=== PATIENT | male | born 1985 | race Two or more races ===

== ENCOUNTER 2016-10-17 10:56 | Emergency (ER) | payer SELFPAY ==
--- NOTE | 2016-10-17 11:15 | ER Document Report ---
ED ENT - General Stated Complaint: HEAD AND EAR SWELLING Mode of Arrival: Ambulatory Information source: Patient TRAVEL OUTSIDE OF THE [place] IN LAST 30 DAYS: No - HPI Patient complains to provider of: Ear problem - R. EAR AND SIDE OF FACE SWOLLEN Onset: This morning - NOTICED UPON AWAKENING. Onset/Duration: Gradual - PROBABLY, EVOLVED OVERNIGHT. Quality of pain: Other - FULLNESS, SLIGHT ITCHING Severity: Mild Context: Allergies - NUMEROUS ENVIRONMENTAL Location of pain: Ears - RIGHT, Face - RIGHT Associated symptoms: Ear pain, Face swelling, Headache. denies: Dental caries, Ear drainage, Ear trauma, Fever, Jaw swelling Similar symptoms previously: No Recently seen / treated by doctor: No - Related Data Allergies/Adverse Reactions: Shellfish * [Shellfish] Allergy (Verified 06/05/13 16:14) ants Allergy (Uncoded 06/05/13 16:14) ragweed Allergy (Uncoded 06/05/13 16:14) Past Medical History - General Information source: Patient - Social History Smoking Status: Current Every Day Smoker Cigarette use (# per day): Yes Chew tobacco use (# tins/day): No Smoking Education Provided: No Frequency of alcohol use: Occasional Drug Abuse: Marijuana Lives with: Family Family History: Reviewed & Not Pertinent Patient has suicidal ideation: No Patient has homicidal ideation: No - Past Medical History Cardiac Medical History: Reports: None Pulmonary Medical History: Reports: Hx Asthma EENT Medical History: Reports: None Neurological Medical History: Reports: None Endocrine Medical History: Reports: None Renal/ Medical History: Reports: None Malignancy Medical History: Reports None GI Medical History: Reports: None Musculoskeltal Medical History: Reports None Psychiatric Medical History: Reports: None Traumatic Medical History: Reports: None Past Surgical History: Reports: Hx Orthopedic Surgery - fb removed from foot, Hx Testicular Surgery - left testical removed - Immunizations Immunizations up to date: Yes Hx Diphtheria, Pertussis, Tetanus Vaccination: No Review of Systems - Review of Systems Constitutional: No symptoms reported EENT: See HPI Cardiovascular: No symptoms reported Respiratory: No symptoms reported Gastrointestinal: No symptoms reported Musculoskeletal: No symptoms reported Skin: See HPI Neurological/Psychological: No symptoms reported Physical Exam - Vital signs Vitals: Temp Pulse BP Pulse Ox 98.2 F 74 186/125 H 94 10/17/16 11:10 10/17/16 11:10 10/17/16 11:10 10/17/16 11:10 Interpretation: Hypertensive - General General appearance: Appears well, Alert In distress: None - HEENT Head: Other - MILD EDEMA & SLIGHT TENDERNESS OF R. TEMPORAL SCALP, R. FRONTAL AREA, R. PRE-AURICULAR AREA. Eyes: Normal Conjunctiva: Normal Cornea: Normal Fundascopic: Normal Ears: Normal External canal: Normal Tympanic membrane: Normal Nasal: Normal Mouth/Lips: Normal Mucous membranes: Normal Pharynx: Normal Neck: Normal. No: Neck mass - Respiratory Respiratory status: No respiratory distress - Cardiovascular Rhythm: Regular Heart sounds: Normal auscultation Murmur: No - Abdominal Inspection: Obese - Back Back: Normal - Extremities General upper extremity: Normal inspection General lower extremity: Normal inspection - Neurological Neuro grossly intact: Yes Cognition: Normal Orientation: AAOx4 - Psychological Associated symptoms: Normal affect, Normal mood - Skin Skin Temperature: Warm Skin Moisture: Dry Skin Color: Normal Skin Turgor: Elastic Skin irregularity: other - NO OPEN WOUNDS OR OTHER DISCRETE LESIONS ABOUT HEAD & NECK. Course - Vital Signs Vital signs: Temp Pulse Resp BP Pulse Ox 97.5 F 71 149/105 H 97 10/17/16 13:37 10/17/16 13:37 10/17/16 13:37 10/17/16 13:37 Discharge - Discharge Clinical Impression: Facial edema Condition: Stable Disposition: HOME, SELF-CARE Additional Instructions: KEEP HEAD ELEVATED MUCH POSSIBLE. TAKE BENADRYL, 25-50 mg EVERY 4-6 HOURS. FOLLOW UP IF NOT IMPROVED TOMORROW, OR SOONER IF WORSE ANY TIME.
[2016-10-17 13:41] VITALS: BP 149/105
== END 2016-10-17 13:37 | disposition home or self-care (01) ==
LOC: ER 10:56
DX: R60.0 Localized edema (principal); H92.09 Otalgia, unspecified ear; R51 Headache; J45.909 Unspecified asthma, uncomplicated; F17.210 Nicotine dependence, cigarettes, uncomplicated; Z91.013 Allergy to seafood; Z91.048 Other nonmedicinal substance allergy status; Z91.038 Other insect allergy status
CPT/HCPCS: 70450; 99283

== ENCOUNTER 2016-10-18 12:52 | Emergency (ER) | payer SELFPAY ==
[2016-10-18 13:31] VITALS: BP 167/109
--- NOTE | 2016-10-18 13:32 | ER Document Report ---
ED Medical Screen (RME) - General Stated Complaint: FACIAL PAIN Notes: Patient is a 31-year-old male presents emergency complaining of facial swelling. Was seen here yesterday and told to take Benadryl every 4-6 hours scheduled. Patient feels that the swelling has gotten worse and is now including his right eye. He is able to see out of her right eye is swollen shut , denies any worsening pain. was told to return to the ED if swelling is worse I have greeted and performed a rapid initial assessment of this patient. A comprehensive ED assessment and evaluation of the patient, analysis of test results and completion of the medical decision making process will be conducted by additional ED providers. TRAVEL OUTSIDE OF THE [place] IN LAST 30 DAYS: No - Related Data Allergies/Adverse Reactions: Shellfish * [Shellfish] Allergy (Verified 10/18/16 13:28) ants Allergy (Uncoded 10/18/16 13:28) ragweed Allergy (Uncoded 10/18/16 13:28) Past Medical History Pulmonary Medical History: Reports: Hx Asthma Renal/ Medical History: Denies: Hx Peritoneal Dialysis Past Surgical History: Reports: Hx Orthopedic Surgery - fb removed from foot, Hx Testicular Surgery - left testical removed - Immunizations Immunizations up to date: Yes Hx Diphtheria, Pertussis, Tetanus Vaccination: No
== END 2016-10-18 17:28 | disposition left against medical advice (07) ==
LOC: ER 12:52
DX: Z53.9 Procedure and treatment not carried out, unspecified reason (principal); R51 Headache; R22.0 Localized swelling, mass and lump, head
CPT/HCPCS: 99281

== ENCOUNTER 2016-10-19 13:08 | Emergency (ER) | payer SELFPAY ==
[2016-10-19] MEDS ORDERED: PREDNISONE 20 MG TABLET PO ONE (13:18)
--- NOTE | 2016-10-19 13:19 | ER Document Report ---
ED Medical Screen (RME) - General Chief Complaint: Eye Problem Stated Complaint: FACE SWELLING Mode of Arrival: Ambulatory Information source: Patient Notes: Patient has continued facial swelling. Was previously seen in the emergency room advised to return for continuing swelling only medications currently being taken his Benadryl. Patient denies respiratory difficulty or difficulty swallowing.. Patient states only known new products his lotion. I have greeted and performed a rapid initial assessment of this patient. A comprehensive ED assessment and evaluation of the patient, analysis of test results and completion of the medical decision making process will be conducted by additional ED providers. TRAVEL OUTSIDE OF THE [place] IN LAST 30 DAYS: No - Related Data Allergies/Adverse Reactions: Shellfish * [Shellfish] Allergy (Verified 10/19/16 13:16) ants Allergy (Uncoded 10/19/16 13:16) ragweed Allergy (Uncoded 10/19/16 13:16) Past Medical History - Social History Chew tobacco use (# tins/day): No Frequency of alcohol use: None Drug Abuse: Marijuana Pulmonary Medical History: Reports: Hx Asthma Renal/ Medical History: Denies: Hx Peritoneal Dialysis Past Surgical History: Reports: Hx Orthopedic Surgery - fb removed from foot, Hx Testicular Surgery - left testical removed - Immunizations Immunizations up to date: Yes Hx Diphtheria, Pertussis, Tetanus Vaccination: No
[2016-10-19] MEDS ORDERED: FAMOTIDINE 20 MG TABLET PO ONE (15:28)
[2016-10-19] MEDS ORDERED: CEPHALEXIN 500 MG CAPSULE PO ONE (15:28)
--- NOTE | 2016-10-19 15:31 | ER Document Report ---
ED General - General Chief Complaint: Eye Problem Stated Complaint: FACE SWELLING Mode of Arrival: Ambulatory Information source: Patient Notes: Patient presents to the emergency department with complaints of facial swelling. Patient was evaluated 2 days ago for the same symptoms. He reports at that time his scalp it is ears were swelling. Now he has bilateral swelling to his eyes. His scalp and is ears are better. Patient denies other symptoms such as fever vomiting diarrhea, he denies sore throat itchy throat cough or shortness of breath.. Patient reports his skin is very sensitive. 2 days ago he used some type of bath and body lotion on his head, he also cut his hair cut. He reports this type of allergic reaction has happened to him in the past twice. Once when he had his hair dyed and once when he ate shellfish. Patient was evaluated in the emergency department 2 days ago and prescribed Benadryl. He reports he's been taking Benadryl without relief of symptoms. Patient reports he had scabs on his scalp but they seem to be gone. Patient denies drainage to his scalp or ears. TRAVEL OUTSIDE OF THE [place] IN LAST 30 DAYS: No - HPI Onset: Other - 2 days ago Onset/Duration: Persistent Quality of pain: No pain Associated symptoms: None Exacerbated by: Denies Relieved by: Denies Similar symptoms previously: Yes Recently seen / treated by doctor: Yes - Related Data Allergies/Adverse Reactions: Shellfish * [Shellfish] Allergy (Verified 10/19/16 13:16) ants Allergy (Uncoded 10/19/16 13:16) ragweed Allergy (Uncoded 10/19/16 13:16) Past Medical History - General Information source: Patient - Social History Smoking Status: Current Every Day Smoker Cigarette use (# per day): Yes Chew tobacco use (# tins/day): No Frequency of alcohol use: None Drug Abuse: Marijuana Occupation: cook at the [employer] Family History: Reviewed & Not Pertinent Patient has suicidal ideation: No Patient has homicidal ideation: No Pulmonary Medical History: Reports: Hx Asthma Renal/ Medical History: Denies: Hx Peritoneal Dialysis Past Surgical History: Reports: Hx Orthopedic Surgery - fb removed from foot, Hx Testicular Surgery - left testical removed - Immunizations Immunizations up to date: Yes Hx Diphtheria, Pertussis, Tetanus Vaccination: No Review of Systems - Review of Systems Notes: Review HPI for review of systems., All other systems negative Physical Exam - Vital signs Vitals: Temp Pulse Resp BP Pulse Ox 98.1 F 90 18 161/109 H 97 10/19/16 13:15 10/19/16 13:15 10/19/16 13:15 10/19/16 13:15 10/19/16 13:15 - Notes Notes: PHYSICAL EXAMINATION: GENERAL in no acute distress Nontoxic looking HEAD: Atraumatic, normocephalic EYES: Pupils equal round , extraocular movements intact, sclera anicteric, conjunctiva are normal. upper eyelid swelling with some erythema, no drainage. ENT: nares patent, oropharynx clear without exudates. speaks in a clear voice Moist mucous membranes. NECK: Normal range of motion, supple without lymphadenopathy LUNGS: CTAB and equal. No wheezes rales or rhonchi. no coughing noted HEART: Regular rate and rhythm without murmurs ABDOMEN: Soft,denies pain EXTREMITIES: Normal range of motion NEUROLOGICAL: Cranial nerves grossly intact. Normal sensory/motor exams. PSYCH: Normal mood, normal affect. SKIN: Warm, Dry, normal turgor, no open wounds noted, slight swelling to helix of bilateral ears, erythemic papules along hairline to right side of forehead, some clear oozing from top of his left ear-helix- wound culture obtained. Course - Re-evaluation Re-evalutation: 10/19/16 Patient was instructed on all meds, importance of staying away from lotions, use gentle shampoo or soap, fu with pcp. He was instructed to return to ED for any trouble breathing or worsening of symptoms. - Vital Signs Vital signs: Temp Pulse Resp BP Pulse Ox 98.1 F 75 20 116/75 97 10/19/16 13:15 10/19/16 15:55 10/19/16 15:55 10/19/16 15:55 10/19/16 15:55 Discharge - Discharge Clinical Impression: Allergic reaction Qualifiers: Encounter type: initial encounter Qualified Code(s): T78.40XA - Allergy, unspecified, initial encounter Condition: Stable Disposition: HOME, SELF-CARE Instructions: Use of Diphenhydramine, Steroid Medication, Acute Allergic Reaction ([facility]), Cephalexin ([facility]) Additional Instructions: *You have been treated for allergic reaction to lotion *Take medication as prescribed-- start prednisone tomorrow 2/5/17 *Take benadryl as indicated *Avoid the lotion that caused your symtoms *Monitor her skin for signs of increasing reaction *Monitor skin for infection (redness increased swelling warmth discharge) *Wash your head and face with mild soap that have used in the past *Follow up with a primary care provider within 3 days *Return to ED for signs of worsening reaction or signs of infection, worsening condition, changes, needs Prescriptions: Cephalexin Monohydrate [Keflex 500 mg Capsule] 500 mg PO QID #20 capsule Famotidine [Pepcid 20 mg Tablet] 20 mg PO DAILY #12 tablet Prednisone [Deltasone 10 mg Tablet] 10 mg PO ASDIR PRN #21 tablet PRN Reason: Forms: Return to Work
[2016-10-19 15:56] VITALS: BP 116/75
== END 2016-10-19 15:50 | disposition home or self-care (01) ==
LOC: ER 13:08
DX: T78.40XA Allergy, unspecified, initial encounter (principal); R22.0 Localized swelling, mass and lump, head; R23.8 Other skin changes; X58.XXXA Exposure to other specified factors, initial encounter; J45.909 Unspecified asthma, uncomplicated; F17.210 Nicotine dependence, cigarettes, uncomplicated; Z91.013 Allergy to seafood; Z91.048 Other nonmedicinal substance allergy status; Z91.038 Other insect allergy status
CPT/HCPCS: 99283; 87070; 87205; 87077; 87186; J7512

== ENCOUNTER 2016-10-29 13:45 | Emergency (ER) | payer OTHER ==
--- NOTE | 2016-10-29 14:11 | ER Document Report ---
ED Medical Screen (RME) - General Stated Complaint: BODY PAIN Time seen by provider: 14:07 Mode of Arrival: Ambulatory Information source: Patient Notes: 31-year-old male presents to ED for cough cold congestion with hot and cold flashes. 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 States cough cold symptoms started on Friday bodyaches were very bad on Friday. Patient states he does not have a history of high blood pressure blood pressure 160/107 in the RME I have greeted and performed a rapid initial assessment of this patient. A comprehensive ED assessment and evaluation of the patient, analysis of test results and completion of medical decision making process will be conducted by an additional ED providers. TRAVEL OUTSIDE OF THE [place] IN LAST 30 DAYS: No - Related Data Allergies/Adverse Reactions: Shellfish * [Shellfish] Allergy (Verified 10/29/16 14:06) ants Allergy (Uncoded 10/29/16 14:06) ragweed Allergy (Uncoded 10/29/16 14:06) Past Medical History Pulmonary Medical History: Reports: Hx Asthma Renal/ Medical History: Denies: Hx Peritoneal Dialysis Past Surgical History: Reports: Hx Orthopedic Surgery - fb removed from foot, Hx Testicular Surgery - left testical removed - Immunizations Immunizations up to date: Yes Hx Diphtheria, Pertussis, Tetanus Vaccination: No Physical Exam - Vital signs Vitals: Temp Pulse Resp BP Pulse Ox 98.2 F 89 20 167/105 H 97 10/29/16 13:59 10/29/16 13:59 10/29/16 13:59 10/29/16 13:59 10/29/16 13:59 Course - Vital Signs Vital signs: Temp Pulse Resp BP Pulse Ox 98.2 F 89 20 167/105 H 97 10/29/16 13:59 10/29/16 13:59 10/29/16 13:59 10/29/16 13:59 10/29/16 13:59
[2016-10-29] MEDS ORDERED: PREDNISONE 20 MG TABLET PO ONE (17:02)
[2016-10-29] MEDS ORDERED: IPRATROPIUM/ALBUTEROL 0.5-2.5 MG/3 ML AMPUL NEB ONE (17:02)
[2016-10-29] MEDS ORDERED: FAMOTIDINE 20 MG TABLET PO ONE (17:03)
[2016-10-29] MEDS ORDERED: DIPHENHYDRAMINE HCL 25 MG CAPSULE PO ONE (17:03)
--- NOTE | 2016-10-29 18:20 | ER Document Report ---
ED Respiratory Problem - General Chief Complaint: Cold Symptoms Stated Complaint: BODY PAIN Mode of Arrival: Ambulatory Information source: Patient Notes: 31-year-old male presents to the emergency department complaining of cough, congestion, chills, and generalized body aches over the last 4 days. Reports was diagnosed with MRSA infection to skin approximately one week ago for which he has been taking clindamycin and has one dose left. Reports current symptoms started 4 days ago. Still states has intermittently persistent itchy rash to bilateral upper extremities and back. Reports had rash prior to starting the antibiotic. Denies difficulty breathing or swallowing, nausea or vomiting, headache, neck pain, chest pain or shortness of breath. TRAVEL OUTSIDE OF THE [place] IN LAST 30 DAYS: No - HPI Patient complains to provider of: Cough Initiating Event: URI Severity: Mild Pain Level: 2 Associated symptoms: Chills, Congestion, Cough, Runny nose, Wheezing Similar symptoms previously: Yes Recently seen / treated by doctor: No - Related Data Allergies/Adverse Reactions: Shellfish * [Shellfish] Allergy (Verified 10/29/16 14:06) ants Allergy (Uncoded 10/29/16 14:06) ragweed Allergy (Uncoded 10/29/16 14:06) Past Medical History - General Information source: Patient - Social History Smoking Status: Former Smoker Frequency of alcohol use: None Drug Abuse: None Lives with: Family Family History: Reviewed & Not Pertinent Patient has suicidal ideation: No Patient has homicidal ideation: No Pulmonary Medical History: Reports: Hx Asthma Renal/ Medical History: Denies: Hx Peritoneal Dialysis Past Surgical History: Reports: Hx Orthopedic Surgery - fb removed from foot, Hx Testicular Surgery - left testical removed - Immunizations Hx Diphtheria, Pertussis, Tetanus Vaccination: Yes Review of Systems - Review of Systems Constitutional: See HPI EENT: See HPI Cardiovascular: No symptoms reported Respiratory: See HPI Gastrointestinal: No symptoms reported Genitourinary: No symptoms reported Male Genitourinary: No symptoms reported Musculoskeletal: No symptoms reported Skin: No symptoms reported Hematologic/Lymphatic: No symptoms reported Neurological/Psychological: No symptoms reported -: Yes All other systems reviewed and negative Physical Exam - Vital signs Vitals: Temp Pulse Resp BP Pulse Ox 98.2 F 89 20 167/105 H 97 10/29/16 13:59 10/29/16 13:59 10/29/16 13:59 10/29/16 13:59 10/29/16 13:59 Interpretation: Hypertensive - Asymptomatic hypertension. Patient reports history of hypertension but states did not take medication today. - General General appearance: Appears well, Alert In distress: None - HEENT Head: Normocephalic, Atraumatic Eyes: Normal Conjunctiva: Normal Pupils: PERRL Ears: Normal External canal: Normal Tympanic membrane: Normal Sinus: Normal. No: Tenderness Nasal: Clear rhinorrhea. No: Purulent discharge Mouth/Lips: Normal Mucous membranes: Normal, Moist Pharynx: Normal. No: Blood in hypopharynx, Erythema, Exudate, Peritonsillar abscess, Post nasal drainage, Retropharyngeal abscess, Tonsillar hypertrophy, Uvular edema, Potential airway comprom., Other Neck: Normal. No: Anterior cervical chain, Posterior cervical chain, Lymphadenopathy, Meningismus, Subcutaneous emphysema - Respiratory Respiratory status: No respiratory distress. No: Labored, Tachypnea, Tripod position Chest status: Nontender Breath sounds: Nonproductive cough, Wheezing - Mild expiratory. No: Decreased air movement Chest palpation: Normal - Cardiovascular Rhythm: Regular Heart sounds: Normal auscultation Murmur: No Pulses: Normal: Radial Normal capillary refill: Yes - Abdominal Inspection: Normal Distension: No distension Bowel sounds: Normal Tenderness: Nontender Organomegaly: No organomegaly - Back Back: Normal, Nontender - Extremities General upper extremity: Normal inspection, Nontender, Normal color, Normal ROM , Normal temperature General lower extremity: Normal inspection, Nontender, Normal color, Normal ROM , Normal temperature, Normal weight bearing - Neurological Neuro grossly intact: Yes Cognition: Normal Orientation: AAOx4 [place] Coma Scale Eye Opening: Spontaneous [place] Coma Scale Verbal: Oriented [place] Coma Scale Motor: Obeys Commands [place] Coma Scale Total: 15 Speech: Normal Motor strength normal: LUE, RUE, LLE, RLE Sensory: Normal - Psychological Associated symptoms: Normal affect, Normal mood - Skin Skin Temperature: Warm Skin Moisture: Dry Skin Color: Normal Course - Re-evaluation Re-evalutation: 10/29/16 18:44 Patient hemodynamically stable, in no distress, afebrile, tolerating oral fluids without difficulty or vomiting. Rapid influenza B positive. Chest x- ray unremarkable. Will treat for uncomplicated bronchitis at this time as patient is not a candidate for Tamiflu due to symptom onset 4 days ago. Patient appears stable for discharge and agrees with home care, follow-up with PCP, and ED return precautions. - Vital Signs Vital signs: Temp Pulse Resp BP Pulse Ox 99.9 F 91 16 148/72 H 97 10/29/16 18:39 10/29/16 18:39 10/29/16 18:39 10/29/16 18:39 10/29/16 18:39 - Diagnostic Test Radiology reviewed: Image reviewed, Reports reviewed Discharge - Discharge Clinical Impression: Influenza B, Bronchitis Condition: Stable Disposition: HOME, SELF-CARE Additional Instructions: INFLUENZA: The physician feels that you have influenza -- the "flu". Influenza is an infection caused by a virus. Symptoms include generalized aching, fever, headache, dry cough, and fatigue. Some patients with the flu also have nausea, vomiting, and diarrhea. The fever and aches usually last two to four days, with the cough persisting another one to two weeks. Treatment of the flu, for the most part, is simply treatment of symptoms. Rest, drink plenty of fluids, and use acetaminophen for fever and aches. Do not take aspirin. There is an anti-viral medication, called Tamiflu, which may help in "type A" flu, but it's not helpful in every case of flu, and only works if started within the first 24 - 48 hours of the start of symptoms. The physician will determine whether this medication can help you. To prevent spread of the virus, use good handwashing. Shared toys should be cleaned with disinfectant. Clean the toilets, sinks, and counter surfaces in bathrooms. Launder clothing in hot water. What are conditions that should receive medical attention? The development of difficulty breathing. Lip color changes to blue or purple. Persistent vomiting and unable to keep liquids down with signs of dehydration such as: dizziness when standing, unable to urinate, or if child/ is crying no tears are noticed. Is less responsive than normal or becomes confused. How do I decrease the spread of flu in my home? Taking care of the sick patient at home: Keep the sick person in a room separate from the common areas of the house. Keep the "sickroom" door closed. If the person with the flu needs to leave the home, they should cover their nose/mouth when coughing or sneezing and wear a disposable (surgical) mask if available. These masks may be available at your local pharmacy, medical supply and hardware store. If the sick person is in common areas of the house, have them wear a surgical mask. If possible, have the sick person use a separate bathroom that should be cleaned daily with a household disinfectant. If you are the caregiver: Avoid being face to face with the sick adult person as much as possible. Try to stay at least 6 feet away and wear a disposable surgical mask when possible. When holding small children who are sick, place their chin on your shoulder so that they will not cough in your face. Wash your hands after you touch the sick person or handle their tissues and laundry. Wear a mask if you leave home, as you may be infected from taking care of someone and not know it yet. Watch yourself and others in the home for flu symptoms and contact your doctor if symptoms occur. NOTE: Antiviral medication used to reduce the symptoms of the flu works only if taken within 48 hours, and best within 24 hours of symptom onset. Household Cleaning, laundry and waste disposal: Tissues and other disposable items used by the sick person should be thrown away in the trash. Wash your hands after touching these used items. No special waste disposal is required. Keep surfaces (especially bedside tables, bathroom surfaces, and toys for children) clean by wiping them down with a safe household disinfectant according to the directions on the product label. Per Center for Disease Control advice, most people will not receive testing to confirm flu. Also based on the person's health history and onset of symptoms, not all patients will receive prescriptions for antiviral medications. If you have questions related to this, please ask your healthcare provider. For more information, you can call the Centers for Disease Control and Prevention (CDC) Hotline at 9-583-KYN-INFO This line is available in [place] and [place], 24 hours a day, 7 days a week. Or www.[employer] or www.cdc.gov Flu-Like Illness Home Instructions: The influenza virus infection can cause a wide rage of symptoms, including: Fever, cough, sore throat, body aches, headaches, chills, fatigue, with some patients reporting diarrhea and vomiting Like seasonal influenza A, H1N1 ("swine flu")in humans can vary in severity from mild to severe Severe illness with pneumonia, respiratory failure and even is possible Certain groups might be more likely to develop a severe illness from H1N1 infection. Sometimes bacterial infections may occur at the same time as or after infection with influenza viruses and lead to pneumonias, ear infections, or sinus infections. How Flu Spreads The main way that influenza viruses spread is through respiratory droplets of coughs and sneezes. This can happen when someone with the infection coughs or sneezes and the particles fly through the air and land on other people and surfaces. If the person covers their mouth and nose with their hand but does not wash their hands immediately, then these germs are passed onto the next object that they touch. People with Influenza A or suspected H1N1 (swine flu) who are cared for at home should: Check with their doctor about any special care that they might need if they are or have a health condition such as diabetes, heart disease, asthma or emphysema. Also, limit caregiver to one (if possible). women or those with chronic health conditions should not take care of the flu patient unless necessary. Check with their doctor about whether or not medications are needed that may lessen the symptoms of the flu. Stay at home until 24 hours fever free without the use of fever reducing medication. Get plenty of rest and avoid other healthy people in your home. Drink plenty of clear liquids to keep from getting dehydrated. Take medications like Tylenol (Acetaminophen), Advil/Motrin/Nuprin ( Ibuprofen) or Aleve (Naproxen) for fevers and aches. All children under the age of 18 years of age should not take aspirin or products containing aspirin (e.g. Pepto Bismol), as this can cause a rare serious illness called Darcy Syndrome. Over the counter medications for flu and colds may help, but it is very important to follow the package directions. Remember that the medicine may help the symptoms, but it will not help prevent others from getting sick if they are around you. Cover coughs and sneezes using your bent arm. Clean hands with soap and water or an alcohol-based hand rub often, especially after using tissues to cough or sneeze. Encourage hand washing frequently for all people living in the home! The sick person should not have visitors other than caregivers. Encourage concerned loved ones to call instead of visit. Avoid close contact with others-do not go to work or school while sick. USE OF ACETAMINOPHEN (Tylenol): Acetaminophen may be taken for pain relief or fever control. It's much safer than aspirin, offering a wider range of "safe" dosages. It is safe during . Some brand names are Tylenol, Panadol, Datril, Anacin 3, Tempra, and Liquiprin. Acetaminophen can be repeated every four hours. The following are maximum recommended dosages: WEIGHT Dose Drops Elixir Chewable( 80mg) (LBS.) drprs=droppers tsp=teaspoon 6 40 mg 0.4 ml (1/2) 6-11 80 mg 0.8 ml (full) tsp 1 tab 12-16 120 mg 1 1/2 drprs 3/4 tsp 1 1/2 tabs 17-23 160 mg 2 drprs 1 tsp 2 tabs 24-30 240 mg 3 drprs 1 1/2 tsp 3 tabs 30-35 320 mg 2 tsp 4 tabs 36-41 360 mg 2 1/4 tsp 4 1/2 tabs 42-47 400 mg 2 1/2 tsp 5 tabs 48-53 480 mg 3 tsp 6 tabs 54-59 520 mg 3 1/4 tsp 6 1/2 tabs 60-64 560 mg 3 1/2 tsp 7 tabs 65-70 600 mg 3 3/4 tsp 7 1/2 tabs 71-76 640 mg 4 tsp 8 tabs 77-82 720 mg 4 1/2 tsp 9 tabs 83-88 800 mg 5 tsp 10 tabs >89 pounds or adults 650 mg to 900 mg Acetaminophen can be repeated every four hours. Maximum dose not to exceed 4000 mg a day. These maximum recommended dosages are slightly higher than the dosages written on the product container, but these dosages are very safe and below the toxic dosage for acetaminophen. Use of Fzqa-Scc-Wvhwaxl Ibuprofen Ibuprofen (Advil, Nuprin, Medipren, Motrin IB) is an excellent, safe drug for fever and pain control. In addition, it has anti- inflammatory effects which may be beneficial, especially in the treatment of injuries. It's best to take ibuprofen with food. Persons with ulcer disease or allergy to aspirin should notify their physician of this before taking ibuprofen. Ibuprofen can be given every four to six hours, for a total of four doses daily. Age Pain or fever dose Antiinflammatory dose 6-8 yr 200 mg (1 tab) 200 mg (1 tab) 9-11 yr 200 mg (1 tab) 200-400 mg (1-2 tab) 11-14 yr 200-400 mg (1-2 tab) 400 mg (2 tab) 15-adult 400 mg (2 tab) 600 mg (3 tab) BRONCHITIS WITH BRONCHOSPASM (WHEEZING): You have bronchitis with bronchospasm (wheezing). Sometimes people develop wheezing with a chest cold. This occurs either because of an underlying tendency toward asthma or because the virus itself irritates the bronchial tubes. This irritation causes cough, shortness of breath, and wheezing. Emergency treatment of bronchospasm may include adrenaline shots or bronchodilator aerosol. You may feel lightheaded and have a rapid pulse for an hour or two. Rest and get plenty of fluids. At home, we'll treat you with a bronchodilator inhaler. Corticosteroids may be required for some patients. Until you recover, avoid chemical fumes, dusts, pollens, and exercising in very cold or dry air. If you smoke, stop now! Most cases of bronchitis get better without antibiotics. We prescribe antibiotics when we believe bacteria are damaging your airways, or if there's high risk the bronchitis will worsen into pneumonia. Increase your fluid intake. A cool mist humidifier may make your lungs more comfortable. An expectorant (cough medicine that loosens phlegm) can help. Repeated episodes of bronchitis and bronchospasm may result in lung damage -- for example, chronic bronchitis, recurrent pneumonias, or emphysema. If you develop a fever, increased wheezing, chest pain, or severe shortness of breath, you should contact the doctor immediately. COUGH-SUPPRESSANT & EXPECTORANT MEDICATION: You are to use a cough medication as needed for relief of symptoms. This medicine is a combination of an expectorant (to make the mucous thinner and more easily "coughed up") and a cough suppressant (to reduce the frequency of coughing). The cough-suppressant medicine is related to narcotics. You may experience mild nausea and sleepiness. Some patients who are very sensitive to narcotics may have stomach pain from this medicine. Taking the medicine with food reduces these side effects. Do not drive or work with machinery until you know how this medicine affects you. The expectorant should have no side effects. Iodine-containing expectorants (such as organidin) should not be taken by persons with active thyroid disease unless approved by your doctor. Call the doctor if you develop shortness of breath, hives, rash, itching, lightheadedness, or severe nausea and vomiting. INHALED BRONCHODILATORS: You have received a treatment of and/or prescription for an inhaled bronchodilator -- a medication which stimulates the airways in the lung to dilate. This improves the flow of air in asthma, bronchitis, and emphysema. These medicines have some similarity to adrenaline, and can cause similar side effects: shakiness, racing heart, and a sense of nervousness. These side effects decrease with time. Contact your doctor if these side effects are severe. Do not over-use the medicine. Too-frequent use of the inhaler may make it ineffective. Call your doctor if the inhaler is not controlling your symptoms at the prescribed doses. SMOKING: If you smoke, you should stop smoking. The tar and chemicals in cigarette smoke are harmful. Smoking has been shown to cause: emphysema chronic bronchitis lung cancer mouth and throat cancer stomach and pancreas cancer premature aging defects In addition, smoking increases ear and lung infections in children of smokers. Allergic Contact Dermatitis You have a local allergic reaction, called contact dermatitis. This an allergy to something in contact with your skin. Poison eleni, jewelry, soaps, perfumes, and chemicals are common causes. Typically, an itchy rash develops a few days after the exposure. If the reaction is severe, blisters may develop. Two to three weeks may be required for healing. Generally, treatment consists of: (1) a thorough washing with soap to remove the offending substance, (2) application of a cortisone cream, and (3) antihistamines for itching. If the reaction is particularly severe, further measures may be required. These can include soaking in epsom salts or Edie's solution, and oral cortisone medications. Call the doctor if the rash worsens despite treatment, or if signs of infection occur such as spreading redness, red streaks, swollen glands, swelling , or fever. Diphenhydramine The use of diphenhydramine (Benadryl) has been recommended to control allergic symptoms. The 25 mg strength is available over- the-counter, as well as the elixir. This antihistamine is used for many symptoms. It's useful for itching, watering eyes and nose, allergic swelling, hives, and insect stings. The medication can be repeated four times daily. Age Elixir (12.5 mg/tsp) 25 mg pill 1 yr 1/4 tsp 2-3 yr 1/2 tsp 4-8 yr 1 tsp 9-14 yr 2 tsp one tab adult 1-2 tabs Antihistamines may cause drowsiness, especially with the first dose. Do not operate machinery or drive while under the effects of the medication. Do not combine the medication with alcohol, or with any other medication without talking to your doctor. Acid-Suppressing Medication You have a prescription for medicine which reduces the stomach's secretion of acid. Examples include Zantac, Tagament, and Pepcid. These drugs are often used to allow healing of ulcers or esophagitis. They may be needed to prevent recurrence of ulcers in some patients, or to prevent damage from acid reflux in the esophagus. Take all medication as prescribed, even after the pain is gone. Regular antacids may be added as needed if you have symptoms while taking this medicine. These medications sometimes are prescribed for allergic reactions because they have anti-histaminic effects and relieve the rash and itching of the reaction. There are usually no side effects from this medication. But, in rare cases and particularly in the elderly, serious problems can occur. Contact your doctor if there is fever, rash, hallucinations, confusion, or unusual bruising. Contact your doctor at once if you develop lightheadedness, black or bloody stool, or bloody vomitus. FOLLOW-UP CARE: Drink plenty of fluids, at least 2-3 liters of water per day. Continue taking your previously prescribed medications as directed. Follow-up with your primary care provider this week. Return to the emergency department for any worsening symptoms or concerns. Prescriptions: Guaifenesin/D-Methorphan Hb [Guaifenesin-Dextromethorph Tab] 1 each PO Q12HP PRN #8 tab.sr.12h PRN Reason: Cough Albuterol Sulfate [Proair HFA Inhalation Aerosol 8.5 gm MDI] 2 puff IH Q4H PRN # 1 mdi PRN Reason: Ranitidine HCl [Zantac 150 mg Tablet] 150 mg PO BID #10 tablet Forms: Elevated Blood Pressure, Return to Work
[2016-10-29 18:40] VITALS: BP 148/72
== END 2016-10-29 18:39 | disposition home or self-care (01) ==
LOC: ER 13:45
DX: J11.1 Influenza due to unidentified influenza virus with other respiratory manifestations (principal); J40 Bronchitis, not specified as acute or chronic; J45.909 Unspecified asthma, uncomplicated; R05 Cough; R68.83 Chills (without fever); R21 Rash and other nonspecific skin eruption; R52 Pain, unspecified; I10 Essential (primary) hypertension; J34.89 Other specified disorders of nose and nasal sinuses; L08.9 Local infection of the skin and subcutaneous tissue, unspecified; B95.62 Methicillin resistant Staphylococcus aureus infection as the cause of diseases classified elsewhere; Z91.013 Allergy to seafood; Z91.048 Other nonmedicinal substance allergy status; Z91.038 Other insect allergy status; Z87.891 Personal history of nicotine dependence
CPT/HCPCS: 94640; 99283; 87804; 71020; J7512; J7620

== ENCOUNTER 2016-12-21 11:34 | Emergency (ER) | payer OTHER ==
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
[2016-12-21] MEDS ORDERED: TETRACAINE HCL 0.5% OPH SOLN 2 ML ONE (12:19)
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
[2016-12-21 12:59] VITALS: BP 179/117
== END 2016-12-21 13:03 | disposition home or self-care (01) ==
LOC: ER 11:34
DX: S09.90XA Unspecified injury of head, initial encounter (principal); R22.0 Localized swelling, mass and lump, head; R51 Headache; F10.10 Alcohol abuse, uncomplicated; Y09 Assault by unspecified means
CPT/HCPCS: 70450; 70480; 72125; 99283

== ENCOUNTER 2017-05-26 14:01 | Emergency (ER) | payer OTHER ==
[2017-05-26] MEDS ORDERED: PREDNISONE 20 MG TABLET PO ONE (15:05)
[2017-05-26] MEDS: ALBUTEROL SULFATE 0.083% NEB 2.5 MG/3 ML AMPUL NEB SCH ×2 (15:10→15:51)
--- NOTE | 2017-05-26 15:13 | ER Document Report ---
ED Respiratory Problem - General Chief Complaint: Flu Symptoms Stated Complaint: SHORTNESS OF BREATH Time Seen by Provider: 05/26/17 14:40 Mode of Arrival: Ambulatory Information source: Patient Notes: 31-year-old male presents to ED for cough earache and feels like he has had a fever since . States he has not taken his temperature. Patient is afebrile when seen in the ED and states he felt like he had a fever now. Patient states she has not had a primary doctor in a long time but he has had blood pressure problems for a long time and has not seen a doctor. TRAVEL OUTSIDE OF THE [place] IN LAST 30 DAYS: No - HPI Patient complains to provider of: Cough, Short of breath Onset: Other - last Duration: Continuous Initiating Event: URI, Other - smoker Quality of pain: Other - tight Severity: Moderate Pain Level: 2 Context: Smoker Short of Breath: Moderate Cough: Nonproductive Associated symptoms: Earache, PND, Runny nose, Sinus pain/pressure, Wheezing Similar symptoms previously: Yes Recently seen / treated by doctor: No - Related Data Allergies/Adverse Reactions: Shellfish * [Shellfish] Allergy (Verified 05/26/17 14:10) ants Allergy (Uncoded 05/26/17 14:10) ragweed Allergy (Uncoded 05/26/17 14:10) Past Medical History - General Information source: Patient - Social History Smoking Status: Current Every Day Smoker Cigarette use (# per day): Yes - ppd Chew tobacco use (# tins/day): No Smoking Education Provided: Yes - less than 2 min Frequency of alcohol use: None Drug Abuse: None Lives with: Alone Family History: CVA, Hypertension. 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 Malignancy Medical History: Reports None GI Medical History: Reports: None Musculoskeltal Medical History: Reports None Skin Medical History: Reports None Psychiatric Medical History: Reports: None Traumatic Medical History: Reports: None Infectious Medical History: Reports: None Past Surgical History: Reports: Hx Orthopedic Surgery - fb removed from foot, Hx Testicular Surgery - right testical removed - Immunizations Immunizations up to date: Yes Hx Diphtheria, Pertussis, Tetanus Vaccination: Yes Review of Systems - Review of Systems Constitutional: Recent illness EENT: Nose congestion, Nose discharge, Sinus pressure, Sinus discharge Cardiovascular: No symptoms reported Respiratory: Cough, Wheezing Gastrointestinal: No symptoms reported Genitourinary: No symptoms reported Male Genitourinary: No symptoms reported Musculoskeletal: No symptoms reported Skin: No symptoms reported Hematologic/Lymphatic: No symptoms reported Neurological/Psychological: No symptoms reported Physical Exam - Vital signs Vitals: Temp Pulse Resp BP Pulse Ox 97.5 F 89 18 171/93 H 94 05/26/17 14:08 05/26/17 14:08 05/26/17 14:08 05/26/17 14:08 05/26/17 14:08 Interpretation: Hypertensive - General General appearance: Appears well, Alert - HEENT Head: Normocephalic, Atraumatic Eyes: Normal Pupils: PERRL Ears: Normal External canal: Normal Tympanic membrane: Normal Sinus: Normal Nasal: Swelling, Clear rhinorrhea Mouth/Lips: Normal Mucous membranes: Normal Pharynx: Post nasal drainage Neck: Normal - Respiratory Respiratory status: No respiratory distress Chest status: Nontender Breath sounds: Wheezing Chest palpation: Normal - Cardiovascular Rhythm: Regular Heart sounds: Normal auscultation Murmur: No - Abdominal Inspection: Normal Distension: No distension Bowel sounds: Normal Tenderness: Nontender Organomegaly: No organomegaly - Back Back: Normal, Nontender - Extremities General upper extremity: Normal inspection, Nontender, Normal color, Normal ROM , Normal temperature General lower extremity: Normal inspection, Nontender, Normal color, Normal ROM , Normal temperature, Normal weight bearing. No: Justin's sign - Neurological Neuro grossly intact: Yes Cognition: Normal Orientation: AAOx4 [place] Coma Scale Eye Opening: Spontaneous Abran Coma Scale Verbal: Oriented Abran Coma Scale Motor: Obeys Commands [place] Coma Scale Total: 15 Speech: Normal Motor strength normal: LUE, RUE, LLE, RLE Sensory: Normal - Psychological Associated symptoms: Normal affect, Normal mood - Skin Skin Temperature: Warm Skin Moisture: Dry Skin Color: Normal Course - Re-evaluation Re-evalutation: 05/26/17 21:57 X-ray report negative discussed with patient and written report given to patient. Patient was treated with albuterol and steroids for his asthma exacerbation. Patient was discharged home to follow-up with his primary doctor. Patient has signs and symptoms of upper respiratory infection with wheezing. - Vital Signs Vital signs: Temp Pulse Resp BP Pulse Ox 98.2 F 92 16 163/89 H 92 05/26/17 16:23 05/26/17 16:23 05/26/17 16:23 05/26/17 16:23 05/26/17 16:23 - Diagnostic Test Radiology reviewed: Image reviewed, Reports reviewed Discharge - Discharge Clinical Impression: Asthma Qualifiers: Asthma severity: unspecified severity Asthma complication type: with acute exacerbation Qualified Code(s): J45.901 - Unspecified asthma with (acute) exacerbation Condition: Stable Disposition: HOME, SELF-CARE Instructions: Family Physicians / Practices Additional Instructions: ASTHMA: You have been diagnosed as having asthma. This is a condition where there is episodic tightness in the bronchial tubes. Allergies, infections, and polluted or cold air may be contributing factors. Emergency treatment of a severe asthma attack may include adrenaline shots , or bronchodilator aerosol. You may feel lightheaded, have a decreased exercise tolerance and a rapid pulse for an hour or two. Rest and get plenty of fluids. Home treatment of asthma requires bronchodilator drugs. These can be administered by injection, inhalation, or by mouth. Antibiotics and corticosteroids may be required for some patients. You should avoid chemical fumes, dusts, pollens, and exercising in very cold or dry air. If you smoke, stop!! If you develop a fever, increased wheezing, chest pain, or severe shortness of breath, you should contact the doctor immediately. STEROID MEDICATION: You have been given an injection of or oral medicine of the cortisone/ steroid class. This medication is used to control inflammation or allergy. Bob t is usually only given for a short period of time, until the acute process subsides. There are usually no side effects from short-term use of cortisone-like medications. Some persons feel an increased sense of well-being and are not sleepy at bedtime. Long-term use of cortisone medications is best avoided, unless required for a severe condition. If your condition does not remit, or relapses after the course of corticosteroid medication, you should consult your physician. INHALED BRONCHODILATORS: You have received treatment(s) of and/or prescription for an inhaled bronchodilator -- a medication which stimulates the airways in the lung to dilate. This improves the flow of air in asthma, bronchitis, and emphysema. These medicines have some similarity to adrenaline, and can cause similar side effects: shakiness, racing heart, and a sense of nervousness. These side effects decrease with time. Contact your doctor if these side effects are severe. Do not over-use the medicine. Too-frequent use of the inhaler may make it ineffective. Call your doctor if the inhaler is not controlling your symptoms at the prescribed doses. USE OF ACETAMINOPHEN (Tylenol): Acetaminophen may be taken for pain relief or fever control. It's much safer than aspirin, offering a wider range of "safe" dosages. It is safe during . Some brand names are Tylenol, Panadol, Datril, Anacin 3, Tempra, and Liquiprin. Acetaminophen can be repeated every four hours. The following are maximum recommended dosages: WEIGHT Dose Drops Elixir Chewable( 80mg) (LBS.) drprs=droppers tsp=teaspoon 6 40 mg 0.4 ml (1/2) 6-11 80 mg 0.8 ml (full) tsp 1 tab 12-16 120 mg 1 1/2 drprs 3/4 tsp 1 1/2 tabs 17-23 160 mg 2 drprs 1 tsp 2 tabs 24-30 240 mg 3 drprs 1 1/2 tsp 3 tabs 30-35 320 mg 2 tsp 4 tabs 36-41 360 mg 2 1/4 tsp 4 1/2 tabs 42-47 400 mg 2 1/2 tsp 5 tabs 48-53 480 mg 3 tsp 6 tabs 54-59 520 mg 3 1/4 tsp 6 1/2 tabs 60-64 560 mg 3 1/2 tsp 7 tabs 65-70 600 mg 3 3/4 tsp 7 1/2 tabs 71-76 640 mg 4 tsp 8 tabs 77-82 720 mg 4 1/2 tsp 9 tabs 83-88 800 mg 5 tsp 10 tabs >89 pounds or adults 650 mg to 900 mg Acetaminophen can be repeated every four hours. Maximum dose not to exceed 4000 mg a day. These maximum recommended dosages are slightly higher than the dosages written on the product container, but these dosages are very safe and below the toxic dosage for acetaminophen. FOLLOW-UP CARE: If you have been referred to a physician for follow-up care, call the physician s office for an appointment as you were instructed or within the next two days. If you experience worsening or a significant change in your symptoms, notify the physician immediately or return to the Emergency Department at any time for re-evaluation. Prescriptions: Albuterol Sulfate [Proair HFA Inhalation Aerosol 8.5 gm MDI] 2 puff IH Q4H PRN # 1 mdi PRN Reason: Prednisone [Sterapred Ds] 1 pkg PO ASDIR PRN 12 Days tab.ds.pk PRN Reason: Forms: Elevated Blood Pressure, Return to Work
--- NOTE | 2017-05-26 15:30 | RADIOLOGY REPORT (SQ) ---
EXAM DESCRIPTION: CHEST PA/LAT COMPLETED DATE/TIME: 05/26/2017 3:20 pm REASON FOR STUDY: cough congestion wheeze COMPARISON: 10/29/2016 EXAM PARAMETERS: NUMBER OF VIEWS: two views TECHNIQUE: Digital Frontal and Lateral radiographic views of the chest acquired. RADIATION DOSE: NA LIMITATIONS: none FINDINGS: LUNGS AND PLEURA: No opacities, masses or pneumothorax. No pleural effusion. MEDIASTINUM AND HILAR STRUCTURES: No masses or contour abnormalities. HEART AND VASCULAR STRUCTURES: Heart normal size. No evidence for failure. BONES: No acute findings. HARDWARE: None in the chest. OTHER: No other significant finding. IMPRESSION: NO SIGNIFICANT RADIOGRAPHIC FINDING IN THE CHEST. TECHNICAL DOCUMENTATION: JOB ID: [id number] [employer]- All Rights Reserved
[2017-05-26 16:25] VITALS: BP 163/89
== END 2017-05-26 16:23 | disposition home or self-care (01) ==
LOC: ER 14:01
DX: J45.901 Unspecified asthma with (acute) exacerbation (principal); R06.02 Shortness of breath; R50.9 Fever, unspecified
CPT/HCPCS: 94640 ×2; 99285; 71020; J7512

== ENCOUNTER 2017-12-22 16:58 | Inpatient (IN) | payer SELFPAY ==
[2017-12-22] MEDS ORDERED: VANCOMYCIN HCL INJ 1000 MG VIAL IV ONE ×2 (18:50→21:08)
--- NOTE | 2017-12-22 18:53 | ER Document Report ---
ED Medical Screen (RME) - General Chief Complaint: Abscess Stated Complaint: SWOLLEN HAND Time Seen by Provider: 12/22/17 18:49 Notes: Patient states he injected cocaine into both arms several days ago. He now has redness swelling and pain in both extremities. TRAVEL OUTSIDE OF THE [place] IN LAST 30 DAYS: No - Related Data Allergies/Adverse Reactions: pine nut Allergy (Verified 12/22/17 17:00) Shellfish * [Shellfish] Allergy (Verified 12/22/17 17:00) ants Allergy (Uncoded 12/22/17 17:00) ragweed Allergy (Uncoded 12/22/17 17:00) Past Medical History - Social History Chew tobacco use (# tins/day): No Frequency of alcohol use: Social Drug Abuse: Cocaine, Marijuana - Past Medical History Cardiac Medical History: Reports: Hx Hypertension Pulmonary Medical History: Reports: Hx Asthma Renal/ Medical History: Denies: Hx Peritoneal Dialysis Past Surgical History: Reports: Hx Orthopedic Surgery - toothpick removed from foot, Hx Testicular Surgery - right testical removed - Immunizations Immunizations up to date: Yes Hx Diphtheria, Pertussis, Tetanus Vaccination: Yes Physical Exam - Vital signs Vitals: Temp Pulse Resp BP Pulse Ox 98.6 F 85 20 167/101 H 100 12/22/17 17:43 12/22/17 17:43 12/22/17 17:43 12/22/17 17:43 12/22/17 17:43 Course - Vital Signs Vital signs: Temp Pulse Resp BP Pulse Ox 98.6 F 85 20 167/101 H 100 12/22/17 17:43 12/22/17 17:43 12/22/17 17:43 12/22/17 17:43 12/22/17 17:43
[2017-12-22 19:28] LABS: ABSOLUTE BASOPHILS # (AUTO) 0.1 10^3/uL (0.0-0.2); ABSOLUTE EOSINOPHILS # (AUTO) 0.3 10^3/uL (0.0-0.6); ABSOLUTE LYMPHOCYTES (AUTO) 1.9 10^3/uL (0.5-4.7); ABSOLUTE MONOCYTES (AUTO) 0.9 10^3/uL (0.1-1.4); ABSOLUTE NEUT (AUTO) 8.8 10^3/uL (1.7-8.2); BASOPHILS % (AUTO) 0.6 % (0-2); EOSINOPHILS % (AUTO) 2.6 % (0-6); HEMATOCRIT 44.4 % (37.9-51.0); HEMOGLOBIN 14.5 g/dL (13.5-17.0); LYMPHOCYTES % (AUTO) 15.6 % (13-45); MEAN CORPUSCULAR HEMOGLOBIN 28.8 pg (27.0-33.4); MEAN CORPUSCULAR HGB CONC 32.7 g/dL (32.0-36.0); MEAN CORPUSCULAR VOLUME 88 fl (80-97); MONOCYTES % (AUTO) 7.3 % (3-13); PLATELET COUNT 302 10^3/uL (150-450); RED BLOOD COUNT 5.04 10^6/uL (4.35-5.55); RED CELL DISTRIBUTION WIDTH 13.2 % (11.5-14.0); SEGMENTED NEUTROPHILS % (AUTO) 73.9 % (42-78); TOTAL CELLS COUNTED % (AUTO) 100 %; WHITE BLOOD COUNT 11.9 10^3/uL (4.0-10.5)
[2017-12-22 20:19] LABS: ALANINE AMINOTRANSFERASE 21 U/L (21-72); ALBUMIN 4.1 g/dL (3.5-5.0); ALKALINE PHOSPHATASE 71 U/L (38-126); ANION GAP 10 (5-19); ASPARTATE AMINO TRANSFERASE 17 U/L (17-59); BILIRUBIN,DIRECT 0.4 mg/dL (0.0-0.4); BILIRUBIN,TOTAL 0.7 mg/dL (0.2-1.3); BLOOD UREA NITROGEN 13 mg/dL (7-20); CALCIUM 9.4 mg/dL (8.4-10.2); CARBON DIOXIDE 32 mmol/L (22-30); CHLORIDE 99 mmol/L (98-107); GLUCOSE 134 mg/dL (75-110); POTASSIUM 3.1 mmol/L (3.6-5.0); SODIUM 141.2 mmol/L (137-145); TOTAL PROTEIN 6.8 g/dL (6.3-8.2)
[2017-12-22] MEDS ORDERED: CEFTRIAXONE INJ 1000 MG VIAL IV ONE (21:08)
[2017-12-22] MEDS ORDERED: NORMAL SALINE 1000 ML 1,000 ML IV ONE (21:09)
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
--- NOTE | 2017-12-22 23:04 | PDOC H&P ---
History of Present Illness Admission Date/PCP: 12/22/17 21:21 History of Present Illness: DARIN JOHNSON is a 32 year old black male patient who presented this with 1 day history of right arm swelling and swelling of the left hand after he injected cocaine into his antecubital fossa. Otherwise patient does not have any significant medical history except his obesity. His right arm is markedly swollen indurated but that does not have any fluctuation. Patient has subjective fever but denies chills, chest pain, cough, palpitation, diaphoresis , nausea, vomiting, diarrhea. He does not have any headache, dizziness, blurry vision or any seizure activity. I strongly advised patient to quit IV drug use and he voices agreement. Past Medical History Cardiac Medical History: Reports: Hypertension Pulmonary Medical History: Reports: Asthma Past Surgical History Past Surgical History: Reports: Orthopedic Surgery - toothpick removed from foot Social History Smoking Status: Current Every Day Smoker Family History Family History: CVA, Hypertension. denies: Arthritis, CAD, COPD, DM, Hyperlipidemia, Malignancy, Thyroid Disfunction Parental Family History Reviewed: Yes Children Family History Reviewed: Yes Sibling(s) Family History Reviewed.: Yes Medication/Allergy Home Medications: No Home Medications 12/22/17 Allergies/Adverse Reactions: pine nut Allergy (Verified 12/22/17 17:00) Shellfish * [Shellfish] Allergy (Verified 12/22/17 17:00) ants Allergy (Uncoded 12/22/17 17:00) ragweed Allergy (Uncoded 12/22/17 17:00) Review of Systems Constitutional: PRESENT: as per HPI Eyes: PRESENT: as per HPI Cardiovascular: PRESENT: as per HPI Respiratory: PRESENT: as per HPI Gastrointestinal: PRESENT: as per HPI Neurological: PRESENT: as per HPI Physical Exam Vital Signs: Temp Pulse Resp BP Pulse Ox 98.6 F 86 18 148/86 H 98 12/22/17 21:13 12/22/17 21:13 12/22/17 21:13 12/22/17 21:13 12/22/17 21:13 Assessment & Plan - Diagnosis (1) Cellulitis Qualifiers: Site of cellulitis: other site Is this a current diagnosis for this admission?: Yes Plan: Patient has been started on cefepime and will escalate his antibiotic regimen after 48 hours if there is no adequate response. (2) IV drug abuse Is this a current diagnosis for this admission?: Yes Plan: I counseled the patient for more than 10 minutes regarding IV drug abuse and I encouraged him to quit and he voices agreement. - Time Time Spent: 30 to 50 Minutes Within: within 72 hours - Inpatient Certification Medical Necessity: Need for IV Antibiotics
[2017-12-22] MEDS: CEFEPIME 2 GM/D5W RTU 2 GM/50 ML RTUPB IV SCH (23:58)
[2017-12-23] MEDS: ENOXAPARIN SODIUM INJ 40 MG/0.4 ML DISP.SYRIN SUBCUT SCH (09:49)
[2017-12-23] MEDS: CEFEPIME 2 GM/D5W RTU 2 GM/50 ML RTUPB IV SCH (09:49)
[2017-12-23] MEDS ORDERED: ZOLPIDEM TARTRATE 5 MG TABLET PO PRN (15:32)
[2017-12-23] MEDS ORDERED: ONDANSETRON HCL INJ/PF 4 MG/2 ML SDV IV PRN (15:32)
[2017-12-23] MEDS ORDERED: ACETAMINOPHEN 325 MG TABLET PO PRN (15:32)
--- NOTE | 2017-12-23 15:37 | PDOC PROGRESS REPORT ---
Subjective Progress Note for:: 12/23/17 Subjective:: Patient refers that right forearm feels somewhat better. He admits to some body shoot some cocaine to his arms. He admits that it was dominant of him to do that. Accordingly it had been a week ago but he kept procrastinating and decided to coming because of swelling and pain Review of systems All organ systems evaluated and negative except as in subjective All laboratories and significant diagnostics have been reviewed Reason For Visit: CELLULITES IF RIGHT ARM Physical Exam Vital Signs: Temp Pulse Resp BP Pulse Ox 98.9 F 72 14 134/69 H 96 12/23/17 06:04 12/23/17 06:04 12/23/17 06:04 12/23/17 06:04 12/23/17 06:04 General appearance: PRESENT: no acute distress, cooperative, morbidly obese Head exam: PRESENT: atraumatic, normocephalic Eye exam: PRESENT: conjunctiva pink, EOMI, PERRLA Ear exam: PRESENT: normal external ear exam Mouth exam: PRESENT: moist Neck exam: PRESENT: full ROM. ABSENT: JVD, lymphadenopathy, tenderness Respiratory exam: PRESENT: clear to auscultation huber Cardiovascular exam: PRESENT: RRR. ABSENT: diastolic murmur, systolic murmur Vascular exam: PRESENT: normal capillary refill GI/Abdominal exam: PRESENT: normal bowel sounds, soft. ABSENT: tenderness Extremities exam: PRESENT: full ROM, other - There is swelling and redness localized to the lateral aspect of right and left forearm Musculoskeletal exam: PRESENT: ambulatory Neurological exam: PRESENT: alert, awake, oriented to person, oriented to place , oriented to time, oriented to situation, CN II-XII grossly intact Psychiatric exam: PRESENT: appropriate affect, normal mood Skin exam: PRESENT: intact, normal color Assessment & Plan - Diagnosis (1) Cellulitis Qualifiers: Site of cellulitis: other site Qualified Code(s): L03.818 - Cellulitis of other sites Is this a current diagnosis for this admission?: Yes Plan: Continue current management. Order echocardiogram (2) Cocaine abuse Is this a current diagnosis for this admission?: Yes Plan: Patient educated about dangers of habit. (3) IV drug abuse Is this a current diagnosis for this admission?: Yes Plan: Patient educated about the consequences of IV drug abuse including infection in his heart valves (4) Obesity (BMI 35.0-39.9 without comorbidity) Is this a current diagnosis for this admission?: Yes Plan: Educated about lifestyle changes (5) HTN (hypertension) Qualifiers: Hypertension type: essential hypertension Qualified Code(s): I10 - Essential (primary) hypertension Is this a current diagnosis for this admission?: Yes Plan[facility] - Time Time Spent with patient: 15-24 minutes Medications reviewed and adjusted accordingly: Yes Anticipated discharge: Home Within: within 48 hours - Inpatient Certification Based on my medical assessment, after consideration of the patient's comorbidities, presenting symptoms, or acuity I expect that the services needed warrant INPATIENT care.: Yes I certify that my determination is in accordance with my understanding of Medicare's requirements for reasonable and necessary INPATIENT services [42 CFR 412.3e].: Yes Medical Necessity: Need Close Monitoring Due to Risk of Patient Decompensation, Need for IV Antibiotics
[2017-12-23] MEDS ORDERED: DILTIAZEM HCL 240 MG CAPSULE.CR PO ONE (17:00)
[2017-12-23] MEDS: CEFEPIME HCL 2 GM in DEXTROSE 5%-WATER 100 ML IV SCH (22:03)
[2017-12-24] MEDS: CEFEPIME HCL 2 GM in DEXTROSE 5%-WATER 100 ML IV SCH ×2 (09:13→22:02)
[2017-12-24] MEDS: DILTIAZEM HCL 240 MG CAPSULE.CR PO SCH (09:13)
[2017-12-24] MEDS: ENOXAPARIN SODIUM INJ 40 MG/0.4 ML DISP.SYRIN SUBCUT SCH (09:14)
--- NOTE | 2017-12-24 15:56 | PDOC PROGRESS REPORT ---
Subjective Progress Note for:: 12/24/17 Subjective:: Patient refers that redness and swelling is better however the right forearm appears hard. Patient realizes that it was stupid of him to have somebody injected into his arm. He states that he went to go the correct way and everything was wrong. I that his blood pressure resolved and will initiate treatment. Review of systems All organ systems evaluated and negative except as in subjective All laboratories and significant diagnostics have been reviewed Reason For Visit: CELLULITES IF RIGHT ARM Physical Exam Vital Signs: Temp Pulse Resp BP Pulse Ox 98.1 F 65 19 144/91 H 98 12/24/17 07:23 12/24/17 07:23 12/24/17 07:23 12/24/17 07:23 12/24/17 07:23 Intake & Output 12/23/17 12/24/17 12/25/17 06:59 06:59 06:59 Intake Total 400 Balance 400 Weight 139.1 kg General appearance: PRESENT: no acute distress, cooperative, morbidly obese Head exam: PRESENT: atraumatic, normocephalic Eye exam: PRESENT: conjunctiva pink, EOMI, PERRLA Ear exam: PRESENT: normal external ear exam Mouth exam: PRESENT: moist Neck exam: PRESENT: full ROM. ABSENT: JVD, lymphadenopathy, tenderness Respiratory exam: PRESENT: clear to auscultation huber Cardiovascular exam: PRESENT: RRR. ABSENT: diastolic murmur, systolic murmur Vascular exam: ABSENT: normal capillary refill GI/Abdominal exam: PRESENT: normal bowel sounds, soft. ABSENT: tenderness Extremities exam: PRESENT: full ROM. ABSENT: pedal edema Musculoskeletal exam: PRESENT: ambulatory Neurological exam: PRESENT: alert, awake, oriented to person, oriented to place , oriented to time, oriented to situation, CN II-XII grossly intact Psychiatric exam: PRESENT: appropriate affect, normal mood Skin exam: PRESENT: other - Redness of the right and left forearm improved. There is induration noted to right forearm Assessment & Plan - Diagnosis (1) Cellulitis Qualifiers: Site of cellulitis: other site Qualified Code(s): L03.818 - Cellulitis of other sites Is this a current diagnosis for this admission?: Yes Plan: Continue current management. Order sonogram to evaluate for microabscesses. Interestingly patient admits that even the technique to inject his arm was from as he google and realized that everything was wrong. (2) Cocaine abuse Is this a current diagnosis for this admission?: Yes Plan: Patient educated about dangers of habit. (3) IV drug abuse Is this a current diagnosis for this admission?: Yes Plan: Patient educated about the consequences of IV drug abuse including infection in his heart valves. Echocardiogram pending (4) Obesity (BMI 35.0-39.9 without comorbidity) Is this a current diagnosis for this admission?: Yes Plan: Educated about lifestyle changes (5) HTN (hypertension) Qualifiers: Hypertension type: essential hypertension Qualified Code(s): I10 - Essential (primary) hypertension Is this a current diagnosis for this admission?: Yes Plan: Fauzia PETERSON ordered and will follow up response - Time Time Spent with patient: 15-24 minutes Medications reviewed and adjusted accordingly: Yes Anticipated discharge: Home Within: within 48 hours - Inpatient Certification Based on my medical assessment, after consideration of the patient's comorbidities, presenting symptoms, or acuity I expect that the services needed warrant INPATIENT care.: Yes I certify that my determination is in accordance with my understanding of Medicare's requirements for reasonable and necessary INPATIENT services [42 CFR 412.3e].: Yes Medical Necessity: Need Close Monitoring Due to Risk of Patient Decompensation
--- NOTE | 2017-12-24 18:55 | XCELERA REPORT ---
[address] [address] Transthoracic Echocardiogram Report Name: DARIN JOHNSON Age: 32 yrs Gender: Male : 1985 Patient Status: Inpatient Patient Location: [address] [place] [address] Study Date: 12/24/2017 10:36 AM Height: 69 in Weight: 299 lb BSA: 2.5 m2 Procedure: A complete two-dimensional transthoracic echocardiogram was performed (2D, M-mode, spectral and color flow Doppler). The study was technically adequate with some images being suboptimal in quality. Reason For Study: eval for endocarditis Ordering Physician: ELIOT JOE Performed By: Soco Perea Interpretation Summary The left ventricular ejection fraction is normal. There is borderline concentric left ventricular hypertrophy. The left ventricle is grossly normal size. Doppler measurements suggest normal left ventricular diastolic function Wall motion cannot be accurately commented on, but no definite regional wall motion abnormalities noted. The right ventricular systolic function is normal. The right atrium is normal in size The left atrial size is normal. There is no mitral regurgitation noted. There is no mitral valve stenosis. No aortic regurgitation is present. There is no aortic valve stenosis There is a trace or physiologic amount of tricuspid regurgitation Tricuspid regurgitation jet envelope not well defined to measure RV systolic pressure accurately. The aortic root is not well visualized but is probably normal size. The inferior vena cava appeared normal and decreased > 50% with respiration (RAP 5-10 mmHg) There is no pericardial effusion. No definite vegetations noted but if clinical suspicion is high, then consider CORINNE and multiple blood cultures. MMode/2D Measurements & Calculations RVDd: 3.4 cm LVIDd: 4.8 cm FS: 32.7 % Ao root diam: 2.6 cm IVSd: 1.1 cm LVIDs: 3.2 cm EDV(Teich): 106.0 ml LVPWd: 1.2 cm ESV(Teich): 41.3 ml Ao root area: 5.4 cm2 EF(Teich): 61.0 % LA dimension: 3.8 cm Doppler Measurements & Calculations MV E max smita: MV P1/2t max smita: Ao V2 max: LV V1 max P.2 cm/sec 99.2 cm/sec 159.0 cm/sec 6.0 mmHg MV A max smita: MV P1/2t: 87.5 msec Ao max PG: LV V1 max: 82.4 cm/sec 10.1 mmHg 122.9 cm/sec MV E/A: 1.2 MVA(P1/2t): 2.5 cm2 MV dec slope: 332.1 cm/sec2 MV dec time: 0.26 sec PA V2 max: TR max smita: 96.3 cm/sec 186.0 cm/sec PA max PG: TR max P.8 mmHg 3.7 mmHg Left Ventricle The left ventricle is grossly normal size. There is borderline concentric left ventricular hypertrophy. The left ventricular ejection fraction is normal. Doppler measurements suggest normal left ventricular diastolic function. Wall motion cannot be accurately commented on, but no definite regional wall motion abnormalities noted. Right Ventricle The right ventricle is grossly normal size. There is normal right ventricular wall thickness. The right ventricular systolic function is normal. Atria The right atrium is normal in size. The left atrial size is normal. Interarterial septum not well visualized and not well dopplered. Cannot comment on ASD/PFO presence. Mitral Valve The mitral valve is grossly normal. There is no mitral valve stenosis. There is no mitral regurgitation noted. Aortic Valve The aortic valve is grossly normal. There is no aortic valve stenosis. No aortic regurgitation is present. Tricuspid Valve The tricuspid valve is not well visualized, but is grossly normal. There is no tricuspid stenosis. There is a trace or physiologic amount of tricuspid regurgitation. Tricuspid regurgitation jet envelope not well defined to measure RV systolic pressure accurately. Pulmonic Valve The pulmonic valve is not well visualized. Great Vessels The aortic root is not well visualized but is probably normal size. The inferior vena cava appeared normal and decreased > 50% with respiration (RAP 5-10 mmHg). Effusions There is no pericardial effusion. Incidental Findings No definite vegetations noted but if clinical suspicion is high, then consider CORINNE and multiple blood cultures. : ELIOT JOE > Robert Pizarro
[2017-12-25 05:33] LABS: ALANINE AMINOTRANSFERASE 23 U/L (21-72); ALBUMIN 3.7 g/dL (3.5-5.0); ALKALINE PHOSPHATASE 62 U/L (38-126); ANION GAP 10 (5-19); ASPARTATE AMINO TRANSFERASE 43 U/L (17-59); BILIRUBIN,DIRECT 0.2 mg/dL (0.0-0.4); BILIRUBIN,TOTAL 0.6 mg/dL (0.2-1.3); BLOOD UREA NITROGEN 11 mg/dL (7-20); CALCIUM 9.1 mg/dL (8.4-10.2); CARBON DIOXIDE 31 mmol/L (22-30); CHLORIDE 105 mmol/L (98-107); GLUCOSE 98 mg/dL (75-110); POTASSIUM 3.8 mmol/L (3.6-5.0); SODIUM 145.6 mmol/L (137-145); TOTAL PROTEIN 6.3 g/dL (6.3-8.2)
[2017-12-25 08:00] LABS: ABSOLUTE BASOPHILS # (AUTO) 0.1 10^3/uL (0.0-0.2); ABSOLUTE EOSINOPHILS # (AUTO) 0.3 10^3/uL (0.0-0.6); ABSOLUTE LYMPHOCYTES (AUTO) 1.6 10^3/uL (0.5-4.7); ABSOLUTE MONOCYTES (AUTO) 0.7 10^3/uL (0.1-1.4); EOSINOPHILS % (AUTO) 3.5 % (0-6); HEMATOCRIT 36.9 % (37.9-51.0); HEMOGLOBIN 12.4 g/dL (13.5-17.0); LYMPHOCYTES % (AUTO) 18.7 % (13-45); MEAN CORPUSCULAR HEMOGLOBIN 29.3 pg (27.0-33.4); MEAN CORPUSCULAR HGB CONC 33.5 g/dL (32.0-36.0); MEAN CORPUSCULAR VOLUME 88 fl (80-97); MONOCYTES % (AUTO) 8.2 % (3-13); PLATELET COUNT 321 10^3/uL (150-450); RED BLOOD COUNT 4.22 10^6/uL (4.35-5.55); RED CELL DISTRIBUTION WIDTH 12.8 % (11.5-14.0); SEGMENTED NEUTROPHILS % (AUTO) 68.6 % (42-78); TOTAL CELLS COUNTED % (AUTO) 100 %; WHITE BLOOD COUNT 8.7 10^3/uL (4.0-10.5)
[2017-12-25] MEDS: CEFUROXIME 500 MG TABLET PO SCH ×2 (09:44→17:27)
[2017-12-25] MEDS: HYDROCHLOROTHIAZIDE 25 MG TABLET PO SCH (09:44)
[2017-12-25] MEDS: DILTIAZEM HCL 240 MG CAPSULE.CR PO SCH (09:45)
[2017-12-25] MEDS: ENOXAPARIN SODIUM INJ 40 MG/0.4 ML DISP.SYRIN SUBCUT SCH (09:46)
--- NOTE | 2017-12-25 14:21 | RADIOLOGY REPORT (SQ) ---
EXAM DESCRIPTION: U/S EXTREMITY NONVASCULAR LTD COMPLETED DATE/TIME: 12/25/2017 11:50 am REASON FOR STUDY: Evaluate for abscess to right forearm COMPARISON: None. TECHNIQUE: Dynamic and static grayscale images acquired of the localized site of clinical concern an d recorded on PACS. Additional selected color Doppler and spectral images recorded. SITE OF CONCERN: Right forearm antecubital area. LIMITATIONS: None. FINDINGS: SKIN AND SUBCUTANEOUS TISSUES: Multiple small fluid collections are identified in the supe rficial soft tissues with the largest measuring 1.5 x 1.5 x 0.7 cm in diameters. These are suspiciou s for small abscess collections. DEEP SOFT TISSUES/MUSCLES: No masses. No fluid collections. No edema. VASCULAR: No increased or decreased vascularity. No occlusions. OTHER: No other significant finding. IMPRESSION: Multiple small fluid collections are identified in the superficial soft tissues as noted above suspicious for small abscess collections. Clinical correlation is recommended. Other finding s as noted above TECHNICAL DOCUMENTATION: JOB ID: [id number] [employer]- All Rights Reserved Reading location - IP/workstation name: [email or web address]
--- NOTE | 2017-12-25 14:36 | PDOC PROGRESS REPORT ---
Subjective Progress Note for:: 12/25/17 Subjective:: No complaints. Patient admits history of high blood pressure in several members of his family. Review of systems All organ systems evaluated and negative except as in subjective All laboratories and significant diagnostics have been reviewed Reason For Visit: CELLULITES IF RIGHT ARM Physical Exam Vital Signs: Temp Pulse Resp BP Pulse Ox 98.2 F 67 20 167/108 H 98 12/25/17 12:03 12/25/17 12:03 12/25/17 12:03 12/25/17 12:03 12/25/17 12:03 Intake & Output 12/24/17 12/25/17 12/26/17 06:59 06:59 06:59 Intake Total 400 1320 200 Balance 400 1320 200 Weight 139.1 kg 138.8 kg General appearance: PRESENT: cooperative, morbidly obese Head exam: PRESENT: atraumatic, normocephalic Eye exam: PRESENT: conjunctiva pink, EOMI, PERRLA Ear exam: PRESENT: normal external ear exam Mouth exam: PRESENT: moist Neck exam: PRESENT: full ROM. ABSENT: JVD, lymphadenopathy, tenderness Respiratory exam: PRESENT: clear to auscultation huber Cardiovascular exam: PRESENT: RRR. ABSENT: diastolic murmur, systolic murmur Vascular exam: PRESENT: normal capillary refill GI/Abdominal exam: PRESENT: normal bowel sounds, soft. ABSENT: tenderness Extremities exam: PRESENT: full ROM, other - There is persistent induration along the medial aspect of right forearm and left forearm. Redness resolved Musculoskeletal exam: PRESENT: ambulatory Neurological exam: PRESENT: alert, awake, oriented to person, oriented to place , oriented to time, oriented to situation, CN II-XII grossly intact Psychiatric exam: PRESENT: appropriate affect, normal mood Skin exam: PRESENT: normal color Results Laboratory Results: 12/25/17 07:13 12/25/17 05:04 12/25/17 12/25/17 12/25/17 05:04 05:04 07:13 WBC Cancelled 8.7 RBC Cancelled 4.22 L Hgb Cancelled 12.4 L D Hct Cancelled 36.9 L MCV Cancelled 88 MCH Cancelled 29.3 MCHC Cancelled 33.5 RDW Cancelled 12.8 Plt Count Cancelled 321 Seg Neutrophils % Cancelled 68.6 Lymphocytes % Cancelled 18.7 Monocytes % Cancelled 8.2 Eosinophils % Cancelled 3.5 Basophils % Cancelled 1.0 Absolute Neutrophils Cancelled 6.0 Absolute Lymphocytes Cancelled 1.6 Absolute Monocytes Cancelled 0.7 Absolute Eosinophils Cancelled 0.3 Absolute Basophils Cancelled 0.1 Sodium 145.6 H Potassium 3.8 Chloride 105 Carbon Dioxide 31 H Anion Gap 10 BUN 11 Creatinine 1.05 Est GFR ( Amer) > 60 Est GFR (Non-Af Amer) > 60 Glucose 98 Calcium 9.1 Magnesium 2.2 Total Bilirubin 0.6 AST 43 ALT 23 Alkaline Phosphatase 62 Total Protein 6.3 Albumin 3.7 Impressions: Extremity Ultrasound 12/25/17 00:00 IMPRESSION: Multiple small fluid collections are identified in the superficial soft tissues as noted above suspicious for small abscess collections. Clinical correlation is recommended. Other findings as noted above Assessment & Plan - Diagnosis (1) Cellulitis Qualifiers: Site of cellulitis: other site Qualified Code(s): L03.818 - Cellulitis of other sites Is this a current diagnosis for this admission?: Yes Plan: To transition to Ceftin. To consult surgery since sonogram shows possibility of microabscesses (2) Cocaine abuse Is this a current diagnosis for this admission?: Yes Plan: Patient educated about dangers of habit. (3) IV drug abuse Is this a current diagnosis for this admission?: Yes Plan: Patient educated about the consequences of IV drug abuse including infection in his heart valves. Echocardiogram noted (4) Obesity (BMI 35.0-39.9 without comorbidity) Is this a current diagnosis for this admission?: Yes Plan: Educated about lifestyle changes (5) HTN (hypertension) Qualifiers: Hypertension type: essential hypertension Qualified Code(s): I10 - Essential (primary) hypertension Is this a current diagnosis for this admission?: Yes Plan: Add HCTZ and hydralazine to Cardizem. Would like to manage blood pressure as much as possible due to lack of PCP and other resources - Time Time Spent with patient: 15-24 minutes Medications reviewed and adjusted accordingly: Yes Anticipated discharge: Home Within: within 24 hours - Inpatient Certification Based on my medical assessment, after consideration of the patient's comorbidities, presenting symptoms, or acuity I expect that the services needed warrant INPATIENT care.: Yes I certify that my determination is in accordance with my understanding of Medicare's requirements for reasonable and necessary INPATIENT services [42 CFR 412.3e].: Yes Medical Necessity: Significant Comorbidiites Make Outpatient Treatment Too Risky , Need Close Monitoring Due to Risk of Patient Decompensation
[2017-12-25] MEDS ORDERED: HYDRALAZINE HCL 50 MG TABLET PO ONE (15:15)
--- NOTE | 2017-12-25 19:08 | PDOC CONSULTATION ---
History of Present Illness Admission Date/PCP: 12/22/17 21:21 Patient complains of: mild pains along right forearm just below elbow History of Present Illness: DARIN JOHNSON is a 32 year old male who injected heroin to right arm. The next day was seen at ED and admitted for cellulitis right arm on 12/22/17. Denies fever/chill. Today had ultrasound right arm which showed small abscesses. Past Medical History Cardiac Medical History: Reports: Hypertension Pulmonary Medical History: Reports: Asthma Past Surgical History Past Surgical History: Reports: Orthopedic Surgery - toothpick removed from foot Social History Lives with: Family Smoking Status: Current Every Day Smoker Cigarettes Packs Per Day: 0.5 Number of Years Smokin Last Time Smoked: 12/22/18 Frequency of Alcohol Use: Social Hx Recreational Drug Use: Yes Drugs: Cocaine, Marijuana Hx Prescription Drug Abuse: No - Advance Directive Resuscitation Status: Full Code Family History Family History: CVA, Hypertension. denies: Arthritis, CAD, COPD, DM, Hyperlipidemia, Malignancy, Thyroid Disfunction Parental Family History Reviewed: Yes - hypertension Children Family History Reviewed: No Sibling(s) Family History Reviewed.: No Medication/Allergy Home Medications: No Home Medications 12/22/17 Allergies/Adverse Reactions: pine nut Allergy (Verified 12/22/17 17:00) Shellfish * [Shellfish] Allergy (Verified 12/22/17 17:00) ants Allergy (Uncoded 12/22/17 17:00) ragweed Allergy (Uncoded 12/22/17 17:00) Review of Systems Constitutional: PRESENT: other - no fever/chills Eyes: PRESENT: other - no visual/hearing changes Cardiovascular: PRESENT: other - no chest pains/cough Gastrointestinal: PRESENT: other - no pains Genitourinary: PRESENT: other - no dysuria Integumentary: PRESENT: erythema - right forearm,left forearm small area Endocrine: PRESENT: other - no polyuria/polydipsia Hematologic/Lymphatic: PRESENT: other - no easy bruising Physical Exam Vital Signs: Temp Pulse Resp BP Pulse Ox 97.7 F 74 20 169/106 H 97 12/25/17 16:00 12/25/17 16:00 12/25/17 16:00 12/25/17 16:00 12/25/17 16:00 Intake & Output 12/24/17 12/25/17 12/26/17 06:59 06:59 06:59 Intake Total 400 1320 830 Balance 400 1320 830 Weight 139.1 kg 138.8 kg General appearance: PRESENT: no acute distress Head exam: PRESENT: atraumatic Eye exam: PRESENT: conjunctiva pink Mouth exam: PRESENT: moist Neck exam: PRESENT: full ROM Respiratory exam: PRESENT: clear to auscultation huber Cardiovascular exam: PRESENT: RRR Pulses: PRESENT: normal radial pulses Vascular exam: PRESENT: normal capillary refill GI/Abdominal exam: PRESENT: soft Rectal exam: PRESENT: deferred Extremities exam: PRESENT: other - Right anterior forearm with elongated firm mass likely from thrombosed veins. Non tender. no fluctuation. Posteriorly below elbow there is a slightly tender reddish mild swelling 4 cm. mild fluctuation Neurological exam: PRESENT: alert, oriented to person, oriented to place, oriented to time, oriented to situation Psychiatric exam: PRESENT: appropriate affect Skin exam: PRESENT: normal color, warm Results Laboratory Results: 12/25/17 07:13 12/25/17 05:04 12/25/17 12/25/17 12/25/17 05:04 05:04 07:13 WBC Cancelled 8.7 RBC Cancelled 4.22 L Hgb Cancelled 12.4 L D Hct Cancelled 36.9 L MCV Cancelled 88 MCH Cancelled 29.3 MCHC Cancelled 33.5 RDW Cancelled 12.8 Plt Count Cancelled 321 Seg Neutrophils % Cancelled 68.6 Lymphocytes % Cancelled 18.7 Monocytes % Cancelled 8.2 Eosinophils % Cancelled 3.5 Basophils % Cancelled 1.0 Absolute Neutrophils Cancelled 6.0 Absolute Lymphocytes Cancelled 1.6 Absolute Monocytes Cancelled 0.7 Absolute Eosinophils Cancelled 0.3 Absolute Basophils Cancelled 0.1 Sodium 145.6 H Potassium 3.8 Chloride 105 Carbon Dioxide 31 H Anion Gap 10 BUN 11 Creatinine 1.05 Est GFR ( Amer) > 60 Est GFR (Non-Af Amer) > 60 Glucose 98 Calcium 9.1 Magnesium 2.2 Total Bilirubin 0.6 AST 43 ALT 23 Alkaline Phosphatase 62 Total Protein 6.3 Albumin 3.7 Impressions: Extremity Ultrasound 12/25/17 00:00 IMPRESSION: Multiple small fluid collections are identified in the superficial soft tissues as noted above suspicious for small abscess collections. Clinical correlation is recommended. Other findings as noted above Assessment & Plan - Diagnosis (1) Acute thrombosis of superficial veins of right upper extremity Is this a current diagnosis for this admission?: Yes (2) Thrombosed veins right arm Is this a current diagnosis for this admission?: Yes (3) cellulitis right arm and left arm Is this a current diagnosis for this admission?: Yes (4) Cellulitis Qualifiers: Site of cellulitis: extremity Is this a current diagnosis for this admission?: Yes - Time Time Spent: 30 to 50 Minutes - Plan Summary Plan Summary: No need to do I&D on those thrombosed veins. Small abscess/cellulitis right posterior forearm just below elbow may need to be drained. Re-evaluate in am Keep NPO tonight
[2017-12-25] MEDS: HYDRALAZINE HCL 50 MG TABLET PO SCH (21:30)
[2017-12-26] MEDS: HYDRALAZINE HCL 50 MG TABLET PO SCH (06:16)
[2017-12-26 06:42] LABS: ANION GAP 13 (5-19); BLOOD UREA NITROGEN 16 mg/dL (7-20); CALCIUM 9.4 mg/dL (8.4-10.2); CARBON DIOXIDE 29 mmol/L (22-30); CHLORIDE 101 mmol/L (98-107); GLUCOSE 96 mg/dL (75-110); POTASSIUM 4.2 mmol/L (3.6-5.0)
[2017-12-26] MEDS: DILTIAZEM HCL 240 MG CAPSULE.CR PO SCH (07:58)
--- NOTE | 2017-12-26 08:18 | PDOC PROGRESS REPORT ---
Subjective Progress Note for:: 12/26/17 Subjective:: comfortable Reason For Visit: CELLULITES IF RIGHT ARM Physical Exam Vital Signs: Temp Pulse Resp BP Pulse Ox 98.3 F 72 20 121/70 98 12/26/17 00:00 12/26/17 00:00 12/26/17 00:00 12/26/17 00:00 12/26/17 00:00 Intake & Output 12/25/17 12/26/17 12/27/17 06:59 06:59 06:59 Intake Total 1320 1400 Balance 1320 1400 Weight 138.8 kg 138.9 kg General appearance: PRESENT: no acute distress Musculoskeletal exam: PRESENT: other - RUE: forearm with chronic indutration of the muscular wand, no tenderness on palpation or passive/active ROM, no sensory deficits, no erythema or open wounds or drainage; multiple old skin scarring, no neuro deficits Results Laboratory Results: 12/25/17 07:13 12/26/17 05:43 12/26/17 05:43 Sodium 143.0 Potassium 4.2 Chloride 101 Carbon Dioxide 29 Anion Gap 13 BUN 16 Creatinine 1.11 Est GFR ( Amer) > 60 Est GFR (Non-Af Amer) > 60 Glucose 96 Calcium 9.4 Impressions: Extremity Ultrasound 12/25/17 00:00 IMPRESSION: Multiple small fluid collections are identified in the superficial soft tissues as noted above suspicious for small abscess collections. Clinical correlation is recommended. 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 Plan: patient can be discharged today I would give 5 days or oral antibiotics only F/U with surgery clinic in 1-2 weeks
[2017-12-26] MEDS: CEFUROXIME 500 MG TABLET PO SCH (09:38)
[2017-12-26] MEDS: HYDROCHLOROTHIAZIDE 25 MG TABLET PO SCH (09:38)
[2017-12-26] MEDS: ENOXAPARIN SODIUM INJ 40 MG/0.4 ML DISP.SYRIN SUBCUT SCH (09:38)
[2017-12-26 11:42] VITALS: BP 134/85
--- NOTE | 2017-12-26 17:33 | PDOC DISCHARGE SUMMARY ---
General - Admit/Disc Date/PCP Admission Date/Primary Care Provider: 12/22/17 21:21 Discharge Date: 12/26/17 - Discharge Diagnosis (1) Cellulitis Is this a current diagnosis for this admission?: Yes (2) Abscess of skin and subcutaneous tissue Is this a current diagnosis for this admission?: Yes (3) Cocaine abuse Is this a current diagnosis for this admission?: Yes (4) IV drug abuse Is this a current diagnosis for this admission?: Yes (5) Obesity (BMI 35.0-39.9 without comorbidity) Is this a current diagnosis for this admission?: Yes (6) HTN (hypertension) Is this a current diagnosis for this admission?: Yes - Additional Information Resuscitation Status: Full Code Discharge Diet: Regular, Cardiac Discharge Activity: Activity As Tolerated Prescriptions: Cefuroxime Axetil [Ceftin 500 mg Tablet] 500 mg PO BID #20 tablet Diltiazem HCl [Cardizem Cd 240 mg Capsule.cr] 240 mg PO DAILY #30 capsule.cr Hydrochlorothiazide [Hydrodiuril 25 mg Tablet] 25 mg PO DAILY #30 tablet Home Medications: Cefuroxime Axetil [Ceftin 500 mg Tablet] 500 mg PO BID #20 tablet 12/26/17 Diltiazem HCl [Cardizem Cd 240 mg Capsule.cr] 240 mg PO DAILY #30 capsule.cr Hydralazine HCl [Apresoline 50 mg Tablet] 50 mg PO Q8 #90 tablet 12/26/17 Hydrochlorothiazide [Hydrodiuril 25 mg Tablet] 25 mg PO DAILY #30 tablet History of Present Illness History of Present Illness: DARIN JOHNSON is a 32 year old male who presented this with a 1 day history of right forearm and left hand swelling after he injected cocaine into his antecubital fossa. Otherwise patient does not have any significant medical history except his obesity. His right arm was markedly swollen and indurated. There was not any fluctuation. Patient had subjective fever but denied chills, chest pain, cough, palpitation, diaphoresis, nausea, vomiting, diarrhea. He did not have any headache, dizziness, blurry vision or any seizure activity. Patient was admitted under the hospitalist program for further management of his medical condition Hospital Course Hospital Course: Patient was place on cefepime and then transitioned to Ceftin after erythema had resolved. Since there was still significant induration, a sonogram of the right forearm was obtained. It showed microabscesses. Patient was evaluated by surgical team and recommendation was for patient to be discharged since he did not need any further intervention. Echocardiogram was obtained which showed diastolic dysfunction and no vegetations.We noted that patient was hypertensive and responded to Cardizem CD and HCTZ. Patient has been advised as to lifestyle modification. As far as the use of cocaine, he has been educated and made aware of consequences such as heart attack, stroke and GI bleeding inclusive. Patient admitted that it was stupid of him to do that. He even "google" about injection of cocaine and stated that the whole technique was wrong. He appears to be motivated not to continue pursuing the same habit. Since patient was improved and had achieved maximum benefit of hospitalization stay prompted to discharge. He has been advised that if any fever, chills, weakness o r weight increased to come to emergency room for further evaluation Physical Exam Vital Signs: Temp Pulse Resp BP Pulse Ox 97.9 F 68 20 178/101 H 99 12/26/17 08:00 12/26/17 08:00 12/26/17 08:00 12/26/17 08:00 12/26/17 08:00 Intake & Output 12/25/17 12/26/17 12/27/17 06:59 06:59 06:59 Intake Total 1320 1400 Balance 1320 1400 Weight 138.8 kg 138.9 kg General appearance: PRESENT: cooperative, morbidly obese Head exam: PRESENT: atraumatic, normocephalic Eye exam: PRESENT: conjunctiva pink, EOMI, PERRLA Ear exam: PRESENT: normal external ear exam Mouth exam: PRESENT: moist Neck exam: PRESENT: full ROM. ABSENT: JVD, lymphadenopathy, tenderness Respiratory exam: PRESENT: clear to auscultation huber Cardiovascular exam: PRESENT: RRR. ABSENT: diastolic murmur, systolic murmur Vascular exam: PRESENT: normal capillary refill GI/Abdominal exam: PRESENT: normal bowel sounds, soft. ABSENT: tenderness Extremities exam: PRESENT: full ROM. ABSENT: pedal edema Musculoskeletal exam: PRESENT: ambulatory, other - Erythema of right forearm and left hand resolved. There is still induration to the lateral aspect of right forearm and left hand. Neurological exam: PRESENT: alert, awake, oriented to person, oriented to place , oriented to time, oriented to situation, CN II-XII grossly intact Psychiatric exam: PRESENT: appropriate affect, normal mood Skin exam: PRESENT: normal color. ABSENT: erythema Results Laboratory Results: 12/25/17 07:13 12/26/17 05:43 12/26/17 05:43 Sodium 143.0 Potassium 4.2 Chloride 101 Carbon Dioxide 29 Anion Gap 13 BUN 16 Creatinine 1.11 Est GFR ( Amer) > 60 Est GFR (Non-Af Amer) > 60 Glucose 96 Calcium 9.4 Impressions: Extremity Ultrasound 12/25/17 00:00 IMPRESSION: Multiple small fluid collections are identified in the superficial soft tissues as noted above suspicious for small abscess collections. Clinical correlation is recommended. Other findings as noted above Qualifiers - * PATEINT BEING DISCHARGED WITH ANY OF THE FOLLOWING DIAGNOSIS?: No Plan Discharge Plan: Discharge home. Patient to follow-up at care clinic as scheduled Time Spent: Less than 30 Minutes
== END 2017-12-26 12:35 | disposition home or self-care (01) | DRG 603 ==
LOC: ER 16:58 → EH 21:21 → 4S 12-23 12:43
PROVIDERS: ADMIT Internal Medicine; ATTEND Internal Medicine
DX: L03.113 Cellulitis of right upper limb (principal); I82.611 Acute embolism and thrombosis of superficial veins of right upper extremity; Z68.42 Body mass index [BMI] 45.0-49.9, adult; F14.10 Cocaine abuse, uncomplicated; I10 Essential (primary) hypertension; E66.01 Morbid (severe) obesity due to excess calories; F17.210 Nicotine dependence, cigarettes, uncomplicated; Z82.3 Family history of stroke; Z82.5 Family history of asthma and other chronic lower respiratory diseases; Z83.3 Family history of diabetes mellitus; Z80.9 Family history of malignant neoplasm, unspecified; Z91.038 Other insect allergy status; Z91.018 Allergy to other foods; Z91.013 Allergy to seafood; Z91.048 Other nonmedicinal substance allergy status
CPT/HCPCS: 36415; 76882; 80048; 80053; 83735; 85025; 87040; 93306; 99284; J0692; J0696; J1650; J3370; J3490; J7030

== ENCOUNTER 2018-01-26 13:10 | Emergency (ER) | payer SELFPAY ==
--- NOTE | 2018-01-26 15:02 | PDOC CONSULTATION ---
Consultation Consult Date: 01/26/18 Attending physician:: JN JIMÉNEZ Consult reason:: Infection antecubital fossa History of Present Illness History of Present Illness: DARIN JOHNSON is a 32 year old male Long history of IV drug abuse, hospitalized last month with cellulitis of the right arm, no surgical intervention provided, who returns to the emergency department complaining of right upper extremity pain, swelling, drainage from the antecubital fossa. Patient states he is not doing drugs but this is highly questionable considering multiple his right arm suspicious for venipuncture attempts. Patient was evaluated by the emergency department staff, felt to possibly have infection in his right upper extremity and surgery was consulted. Patient denies fever. He has not been n.p.o. Past Medical History Cardiac Medical History: Reports: Hypertension Pulmonary Medical History: Reports: Asthma Past Surgical History Past Surgical History: Reports: Orthopedic Surgery - toothpick removed from foot Social History Smoking Status: Current Every Day Smoker Frequency of Alcohol Use: Social Hx Recreational Drug Use: Yes Drugs: Cocaine, Marijuana Hx Prescription Drug Abuse: No Family History Family History: CVA, Hypertension. denies: Arthritis, CAD, COPD, DM, Hyperlipidemia, Malignancy, Thyroid Disfunction Parental Family History Reviewed: Yes Children Family History Reviewed: Yes Sibling(s) Family History Reviewed.: Yes Medication/Allergy Home Medications: Cefuroxime Axetil [Ceftin 500 mg Tablet] 500 mg PO BID #20 tablet 12/26/17 Diltiazem HCl [Cardizem Cd 240 mg Capsule.cr] 240 mg PO DAILY #30 capsule.cr Hydralazine HCl [Apresoline 50 mg Tablet] 50 mg PO Q8 #90 tablet 12/26/17 Hydrochlorothiazide [Hydrodiuril 25 mg Tablet] 25 mg PO DAILY #30 tablet Allergies/Adverse Reactions: pine nut Allergy (Verified 01/26/18 13:14) Shellfish * [Shellfish] Allergy (Verified 01/26/18 13:14) ants Allergy (Uncoded 01/26/18 13:14) ragweed Allergy (Uncoded 01/26/18 13:14) Review of Systems Eyes: ABSENT: visual disturbances Ears: ABSENT: hearing changes Cardiovascular: ABSENT: chest pain, dyspnea on exertion, edema, orthropnea, palpitations Musculoskeletal: PRESENT: as per HPI. ABSENT: joint swelling Physical Exam Vital Signs: Temp Pulse Resp BP Pulse Ox 97.9 F 75 17 134/85 H 97 01/26/18 13:32 01/26/18 13:32 01/26/18 13:32 01/26/18 13:32 01/26/18 13:32 Intake & Output 01/25/18 01/26/18 01/27/18 06:59 06:59 06:59 Weight 130.7 kg General appearance: PRESENT: no acute distress Head exam: PRESENT: normocephalic Respiratory exam: PRESENT: clear to auscultation huber GI/Abdominal exam: PRESENT: diminished bowel sounds Rectal exam: PRESENT: deferred Extremities exam: PRESENT: other - Right upper extremity examined. Multiple sticks sites distal forearm volar surface; at the antecubital fossa is some hyper keratotic tissue possible granulation tissue, no foul smell or active drainage currently. Neurological exam: PRESENT: other - Range of motion right upper extremity appears preserved Psychiatric exam: PRESENT: appropriate affect Assessment & Plan - Diagnosis (1) Acute thrombosis of superficial veins of right upper extremity Is this a current diagnosis for this admission?: Yes Plan: Patient has chronic cellulitis of right upper extremity with the superficial thrombophlebitis based on history. No acute evidence of sepsis, threatening deep soft tissue infection or need for immediate exploration. Comments: 1. 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 I suggested p.o. Bactrim, Hibiclens scrubs, MRSA maintenance protocol 2. Patient clinically appears to be using goals, violating his soft tissue, and injecting who knows what into what compartments. I suspect he may have deep soft tissue infection that may eventually require wide debridement. 3. I suggested to Dr. Saleh that the patient return to the follow-up check in approximately 1 week - Time Time Spent: 50 to 70 Minutes Smoking Cessation Education: over 10 minutes Anticipated discharge: Home
--- NOTE | 2018-01-26 15:03 | ER Document Report ---
ED General - General Chief Complaint: Abscess Stated Complaint: ARM ABSCESS Time Seen by Provider: 01/26/18 14:10 Mode of Arrival: Ambulatory Information source: Patient Notes: This is a 32-year-old man with a history of IV drug abuse in the past with cellulitis in the right antecubital on top of thrombosed veins. Patient presents with concerns for possible new abscess. Patient denies any fever, chills, nausea vomiting. TRAVEL OUTSIDE OF THE [place] IN LAST 30 DAYS: No - HPI Onset: Last week Onset/Duration: Gradual Quality of pain: No pain Severity: None Associated symptoms: denies: Chest pain, Fever, Shortness of breath Exacerbated by: Denies Relieved by: Denies Similar symptoms previously: Yes Recently seen / treated by doctor: Yes - Related Data Allergies/Adverse Reactions: pine nut Allergy (Verified 01/26/18 13:14) Shellfish * [Shellfish] Allergy (Verified 01/26/18 13:14) ants Allergy (Uncoded 01/26/18 13:14) ragweed Allergy (Uncoded 01/26/18 13:14) Past Medical History - General Information source: Patient - Social History Smoking Status: Never Smoker Cigarette use (# per day): No Chew tobacco use (# tins/day): No Drug Abuse: Other - Denies it now: History of IV drug abuse Lives with: Family Family History: CVA, Hypertension. denies: Arthritis, CAD, COPD, DM, Hyperlipidemia, Malignancy, Thyroid Disfunction Patient has suicidal ideation: No Patient has homicidal ideation: No - Past Medical History Cardiac Medical History: Reports: Hx Hypertension Pulmonary Medical History: Reports: Hx Asthma Renal/ Medical History: Denies: Hx Peritoneal Dialysis Past Surgical History: Reports: Hx Orthopedic Surgery - toothpick removed from foot, Hx Testicular Surgery - right testical removed - Immunizations Immunizations up to date: Yes Hx Diphtheria, Pertussis, Tetanus Vaccination: Yes Review of Systems - Review of Systems Constitutional: denies: Chills, Fever EENT: No symptoms reported Cardiovascular: No symptoms reported Respiratory: No symptoms reported Gastrointestinal: No symptoms reported Genitourinary: No symptoms reported Male Genitourinary: No symptoms reported Musculoskeletal: See HPI Skin: See HPI Hematologic/Lymphatic: No symptoms reported Neurological/Psychological: No symptoms reported Physical Exam - Vital signs Vitals: Temp Pulse Resp BP Pulse Ox 97.9 F 75 17 134/85 H 97 01/26/18 13:32 01/26/18 13:32 01/26/18 13:32 01/26/18 13:32 01/26/18 13:32 Notes: Physical exam: GENERAL: The 2-year-old man, alert and oriented 3, afebrile, appears well, sitting in stretcher on phone. HEAD: Atraumatic, normocephalic. EYES: Pupils equal round and reactive to light, extraocular movements intact, sclera anicteric, conjunctiva are normal. ENT: TMs normal, nares patent, oropharynx clear without exudates. Moist mucous membranes. NECK: Normal range of motion, supple without obvious mass or JVD. LUNGS: Breath sounds clear to auscultation bilaterally and equal. No wheezes rales or rhonchi. HEART: Regular rate and rhythm without murmurs, rubs or gallops. ABDOMEN: Soft, normoactive bowel sounds. No tenderness to palpation. No guarding, no rebound. No masses appreciated. EXTREMITIES: Right antecubital (the affected side) show a lot of thrombosed veins in the antecubital region and down the forearm. There is no fluctuance. There is no areas of tenderness. There is mild erythema at the most. There is no warmth. There is in the antecubital small area that looks like the patient may have poked his skin. There is no expressible pus. Bedside ultrasound shows thrombosed veins without any abscess or fluid collection. The left antecubital shows thrombosed veins in the antecubital as well as forearm. NEUROLOGICAL: Cranial nerves II through XII grossly intact. Normal speech, moving all extremities. PSYCH: Normal mood, normal affect. SKIN: Warm, Dry, normal turgor, no rashes or lesions noted. Course - Re-evaluation Re-evalutation: 01/26/18 15:01 Patient is very nontoxic appearing I discussed the case with Dr. Torres who is seen the patient and agrees. Patient may have a mild cellulitis but most of what he has is thrombosed veins. I will put him on an antibiotic. I would recommend Hibiclens washes to the extremities twice weekly. He is going to follow-up in the [facility]. - Vital Signs Vital signs: Temp Pulse Resp BP Pulse Ox 98.1 F 72 18 132/88 H 98 01/26/18 15:13 01/26/18 15:13 01/26/18 15:13 01/26/18 15:13 01/26/18 15:13 Discharge - Discharge Clinical Impression: Cellulitis Condition: Stable Disposition: HOME, SELF-CARE Instructions: Trimethoprim-Sulfa ([facility]) Additional Instructions: Thank you for choosing [facility] for your care. The examination and treatment you have received in the Emergency Department today has been rendered on an emergency basis only and is not intended to be a substitute for complete medical care. You should contact your doctor as it is important that she/he examine you for any new or remaining problems. If given a copy of any lab tests or radiology reports, please bring them with you when you see your physician. If your problem worsens or new symptoms appear and you are unable to arrange prompt follow-up care, return to the Emergency Department. Specific signs to look out for: Worsening redness, worsening pain Any other instructions: Keep the arm elevated at night. Take the antibiotics as prescribed. I want you to buy Hibiclens soap and wash both extremities upper and lower twice weekly in the shower. This is a special antibacterial soap that is sold at [employer]. If you don't have insurance: follow-up at the [facility] which is a free clinic. [address], [place] [address] Prescriptions: Sulfamethoxazole/Trimethoprim [Bactrim Ds Tablet] 1 each PO BID #14 tablet Forms: Return to Work
[2018-01-26 15:14] VITALS: BP 132/88
== END 2018-01-26 15:16 | disposition home or self-care (01) ==
LOC: ER 13:10
DX: L03.113 Cellulitis of right upper limb (principal); I80.8 Phlebitis and thrombophlebitis of other sites; I10 Essential (primary) hypertension; J45.909 Unspecified asthma, uncomplicated; Z91.018 Allergy to other foods; Z91.013 Allergy to seafood; Z91.038 Other insect allergy status; Z91.048 Other nonmedicinal substance allergy status
CPT/HCPCS: 99283

== ENCOUNTER 2018-06-16 23:46 | Emergency (ER) | payer SELFPAY ==
--- NOTE | 2018-06-17 00:24 | ER Document Report ---
ED General - General Stated Complaint: POSSIBLE OVERDOSE Time Seen by Provider: 06/16/18 23:49 Notes: Patient is a pleasant 32-year-old male who presents after drug overdose. Pulled into the gas station and his friends that they start to become poorly responsive and had difficulty breathing. They called 911. Please put him in the car and currently start doing chest compressions. Paramedics arrived and said he had shallow breathing and therefore they gave him Narcan 4 mg intranasally. They had to repeat the dose 2 more times and patient eventually awoke and was breathing on his own and oxygen saturation was 100% after he woke up after the Narcan. Patient says he thought he did just on cocaine but says he may have done other drugs and he just does not remember it is not exactly sure. He says he was injecting these drugs. If the patient is some mild sparing mention to the paramedics that he sometimes abuses pills as well. He says he does not remember if he did pills tonight or not. TRAVEL OUTSIDE OF THE [place] IN LAST 30 DAYS: No - Related Data Allergies/Adverse Reactions: pine nut Allergy (Verified 01/26/18 13:14) Shellfish * [Shellfish] Allergy (Verified 01/26/18 13:14) ants Allergy (Uncoded 01/26/18 13:14) ragweed Allergy (Uncoded 01/26/18 13:14) Past Medical History - Social History Smoking Status: Current Some Day Smoker Frequency of alcohol use: Occasional Drug Abuse: Cocaine, Prescription drugs Family History: CVA, Hypertension. denies: Arthritis, CAD, COPD, DM, Hyperlipidemia, Malignancy, Thyroid Disfunction - Past Medical History Cardiac Medical History: Reports: Hx Hypertension Pulmonary Medical History: Reports: Hx Asthma Renal/ Medical History: Denies: Hx Peritoneal Dialysis Past Surgical History: Reports: Hx Orthopedic Surgery - toothpick removed from foot, Hx Testicular Surgery - right testical removed - Immunizations Immunizations up to date: Yes Hx Diphtheria, Pertussis, Tetanus Vaccination: Yes Review of Systems - Review of Systems Notes: My Normal Review Basic REVIEW OF SYSTEMS: CONSTITUTIONAL : Denies fever, chills, or sweats. Denies recent illness. EENT: Denies eye, ear, throat, or mouth pain or symptoms. Denies nasal or sinus congestion. CARDIOVASCULAR: Denies chest pain. RESPIRATORY: Became apneic. GASTROINTESTINAL: Denies abdominal pain. Denies nausea, vomiting, or diarrhea. MUSCULOSKELETAL: Denies neck or back pain or joint pain or swelling. SKIN: Denies rash or skin lesions. NEUROLOGICAL: Became unresponsive. This was reversed with Narcan. Now moving all extremities without difficulty. Denies any current focal weakness or numbness. ALL OTHER SYSTEMS REVIEWED AND NEGATIVE. Physical Exam - Vital signs Vitals: Resp 13 06/16/18 23:49 - Notes Notes: General Appearance: Well nourished, alert, cooperative, no acute distress, no obvious discomfort. Vitals: reviewed, See vital signs table. Head: no swelling or tenderness to the head Eyes: PERRL, EOMI, Conjuctiva clear Mouth: No decreasd moisture Lungs: No wheezing, No rales, No rhonci, No accessory muscle use, good air exchange bilaterally. Heart: Tachycardic rate, Regular rythm, No murmur, no rub Abdomen: Normal BS, soft, No rigidity, No abdominal tenderness, No guarding, no rebound, no abdominal masses, no organomegaly Extremities: strength 5/5 in all extremities, good pulses in all extremities, no swelling or tenderness in the extremities, no edema. Skin: warm, dry, appropriate color, no rash Neuro: speech clear, oriented x 3, normal affect, responds appropriately to questions. Patient moves all extremities on his own. Distal sensation intact. Cranial nerves II through XII are intact. Course - Re-evaluation Re-evalutation: 06/17/18 05:17 Patient has been watched and monitored for several hours. He does not have any recurrent hypoxemia. He says he feels well and has no further concerns at this time. I talked him at length about the importance of avoiding all street drugs as well as any medications are not prescribed for him. I told him that recurrent use of any drugs will most likely lead to his . He says he will not use any further drugs. He says this episode very much scared him and he wants to stay away from drugs. I informed him even though he says he wants stable from drugs that most people's test statistically to go back to using drugs again in the future and therefore will prescribe him Narcan. Informed him that I hope that he never uses drugs again but if he does that this Narcan is available for him to use if he starts to feel very sleepy or unwell. Encourage him return to ER anytime if he feels unwell or has any further concerns. Patient agrees with plan will be discharged home. Dictation of this chart was performed using voice recognition software; therefore, there may be some unintended grammatical errors. - Vital Signs Vital signs: Temp Pulse Resp BP Pulse Ox 26 H 149/105 H 94 06/17/18 03:00 06/17/18 01:01 06/17/18 03:00 - Laboratory Result Diagrams: 06/17/18 00:04 Laboratory results interpreted by me: 06/17/18 00:04 Potassium 3.3 L Creatinine 1.26 H Glucose 226 H AST 15 L ALT 19 L Salicylates < 1.0 L Acetaminophen < 10 L - EKG Interpretation by Me Additional EKG results interpreted by me: 06/17/18 00:20 EKG is reviewed and interpreted by me. EKG shows sinus tachycardia with a rate of [address] segment elevation or depression. No ischemic T wave inversions. [place] interval is slightly prolonged. QRS duration is within normal range. QTc interval is borderline. No old EKG available for comparison. Discharge - Discharge Clinical Impression: Overdose Qualifiers: Encounter type: initial encounter Injury intent: accidental or unintentional Qualified Code(s): T50.901A - Poisoning by unspecified drugs, medicaments and biological substances, accidental (unintentional), initial encounter Condition: Good Disposition: HOME, SELF-CARE Additional Instructions: Please avoid all street drugs and drugs not prescribed for you. I have prescribed you Narcan. People will still potentially overdose or take too much of an opiate medication. Please keep the Narcan with you so as if you do overdose again you have a medication that can reverse the overdose so that you do not stop breathing. If you have to use the Narcan you should return to the ER immediately. Please return to the ER immediately if you have vomiting, fevers , chest pain, difficulty breathing, or feel unwell. Prescriptions: Naloxone HCl [Narcan] 4 mg NS DANK #1 spray Forms: Return to Work
[2018-06-17 00:34] LABS: ALANINE AMINOTRANSFERASE 19 U/L (21-72); ALBUMIN 4.1 g/dL (3.5-5.0); ALKALINE PHOSPHATASE 71 U/L (38-126); ANION GAP 13 (5-19); ASPARTATE AMINO TRANSFERASE 15 U/L (17-59); BILIRUBIN,DIRECT 0.4 mg/dL (0.0-0.4); BILIRUBIN,TOTAL 0.8 mg/dL (0.2-1.3); BLOOD UREA NITROGEN 11 mg/dL (7-20); CALCIUM 8.6 mg/dL (8.4-10.2); CARBON DIOXIDE 27 mmol/L (22-30); CHLORIDE 100 mmol/L (98-107); GLUCOSE 226 mg/dL (75-110); POTASSIUM 3.3 mmol/L (3.6-5.0); SODIUM 139.6 mmol/L (137-145); TOTAL PROTEIN 7.5 g/dL (6.3-8.2)
[2018-06-17 00:37] LABS: ACETAMINOPHEN < 10 ug/mL (10-30); ALCOHOL < 10 mg/dL (NONE DETECTED); SALICYLATE < 1.0 mg/dL (2.0-20.0)
[2018-06-17 01:27] VITALS: BP 149/105
[2018-06-17 03:01] LABS: URINE AMPHETAMINES SCREEN UNCONFIRMED POSITIVE; URINE BARBITURATES SCREEN NEGATIVE; URINE BENZODIAZEPINES SCREEN NEGATIVE; URINE COCAINE SCREEN UNCONFIRMED POSITIVE; URINE MARIJUANA (THC) SCREEN NEGATIVE; URINE METHADONE SCREEN NEGATIVE; URINE PHENCYCLIDINE SCREEN NEGATIVE
[2018-06-17] MEDS ORDERED: POTASSIUM CHLORIDE 20 MEQ/15 ML UDCUP PO ONE (03:45)
--- NOTE | 2018-06-17 11:03 | EKG REPORT ---
SEVERITY:- BORDERLINE ECG - SINUS TACHYCARDIA BORDERLINE PROLONGED QT INTERVAL : Confirmed by: Robert Pizarro 17-Jun-2018 11:03:25
== END 2018-06-17 03:57 | disposition home or self-care (01) ==
LOC: ER 23:46
DX: T50.901A Poisoning by unspecified drugs, medicaments and biological substances, accidental (unintentional), initial encounter (principal); X58.XXXA Exposure to other specified factors, initial encounter; I10 Essential (primary) hypertension; F17.200 Nicotine dependence, unspecified, uncomplicated
CPT/HCPCS: 36415; 80053; 80307; 93005; 93010; 99284

== ENCOUNTER 2018-06-24 17:23 | Emergency (ER) | payer OTHER ==
[2018-06-24 17:32] VITALS: BP 150/103
[2018-06-24] MEDS ORDERED: SULFAMETHOXAZOLE/TRIMETHOPRIM 800-160 MG TABLET PO ONE (17:52)
[2018-06-24] MEDS ORDERED: CEPHALEXIN 500 MG CAPSULE PO ONE (17:52)
--- NOTE | 2018-06-24 17:53 | ER Document Report ---
HPI - HPI Patient complains to provider of: arm abscess Onset: Other - 3 days Onset/Duration: Persistent Quality of pain: Achy Pain Level: 4 Context: Patient presents complaining of abscess to left forearm for the past 3 days. Patient does report a previous history of MRSA as well as a history of IV drug use. Patient denies any fever Associated Symptoms: Other - Left forearm abscess. denies: Fever Exacerbated by: Movement Relieved by: Denies Similar symptoms previously: Yes Recently seen / treated by doctor: No - ROS ROS below otherwise negative: Yes Systems Reviewed and Negative: Yes All other systems reviewed and negative - CONSTITUTIONAL Constitutional: DENIES: Fever - NEURO Neurology: DENIES: Headache - CARDIOVASCULAR Cardiovascular: DENIES: Chest pain - RESPIRATORY Respiratory: DENIES: Coughing - MUSCULOSKELETAL Musculoskeletal: REPORTS: Extremity pain, Swelling - DERM Skin Color: Erythema Notes: Abscess to left arm Past Medical History - General Information source: Patient - Social History Smoking Status: Current Every Day Smoker Smoking Education Provided: Yes Frequency of alcohol use: Occasional Drug Abuse: Cocaine, Prescription drugs, Other - iv drug use Occupation: Office work Lives with: Family Family History: CVA, Hypertension. denies: Arthritis, CAD, COPD, DM, Hyperlipidemia, Malignancy, Thyroid Disfunction Patient has suicidal ideation: No Patient has homicidal ideation: No - Past Medical History Cardiac Medical History: Reports: Hx Hypertension Pulmonary Medical History: Reports: Hx Asthma Renal/ Medical History: Denies: Hx Peritoneal Dialysis Past Surgical History: Reports: Hx Orthopedic Surgery - toothpick removed from foot, Hx Testicular Surgery - right testical removed - Immunizations Immunizations up to date: Yes Hx Diphtheria, Pertussis, Tetanus Vaccination: Yes Vertical Provider Document - CONSTITUTIONAL Agree With Documented VS: Yes Exam Limitations: No Limitations General Appearance: WD/WN, No Apparent Distress - INFECTION CONTROL TRAVEL OUTSIDE OF THE [place] IN LAST 30 DAYS: No - HEENT HEENT: Atraumatic, Normocephalic - NECK Neck: Normal Inspection - RESPIRATORY Respiratory: Breath Sounds Normal, No Respiratory Distress - CARDIOVASCULAR Cardiovascular: Regular Rate, Regular Rhythm Pulses: Normal: Radial - BACK Back: Normal Inspection - MUSCULOSKELETAL/EXTREMETIES Musculoskeletal/Extremeties: MALOLA FROM - NEURO Level of Consciousness: Awake, Alert, Appropriate Motor/Sensory: No Motor Deficit - DERM Integumentary: Warm, Dry, Abscess - Patient with pointing abscess to middle third of left forearm with overlying erythema, area of induration measures 5 cm. patient with track worley to bilateral upper extremities Course - Vital Signs Vital signs: Temp Pulse Resp BP Pulse Ox 99.2 F 82 18 150/103 H 97 06/24/18 17:31 06/24/18 17:31 06/24/18 17:31 06/24/18 17:31 06/24/18 17:31 Procedures - Incision and Drainage Left Arm Type: Simple Anesthetic type: 1% Lidocaine Blade size: 11 I&D procedure: Betadine prep applied Incision Method: Incision made by scalpel Amount/type of drainage: Patient with moderate amount of purulent drainage from abscess Notes: 06/24/18 18:36 Wound packed with quarter-inch iodoform gauze. Adult Front & Back picture: 1 - Pointing abscess to left forearm Discharge - Discharge Clinical Impression: IV drug abuse, Encounter for incision and drainage procedure Abscess of skin and subcutaneous tissue Qualifiers: Site of cutaneous abscess: extremity Site of cutaneous abscess of extremity: upper extremity Laterality: left Qualified Code(s): L02.414 - Cutaneous abscess of left upper limb Condition: Good Disposition: HOME, SELF-CARE Instructions: Abscess ([facility]), Cephalexin ([facility]), Oral Narcotic Medication ([facility]), Post Incision and Drainage, Trimethoprim-Sulfa ([facility]) Additional Instructions: Return immediately for any new or worsening symptoms Followup with your primary care provider, call tomorrow to make a followup appointment Wound culture is pending, we will call if you need any different treatment Return in 2 days for wound recheck Prescriptions: Cephalexin Monohydrate [Keflex 500 mg Capsule] 500 mg PO Q6H 7 Days capsule Sulfamethoxazole/Trimethoprim [Bactrim Ds Tablet] 1 each PO BID #20 tablet Forms: Smoking Cessation Education, Return to Work Referrals: [facility] [Provider Group] - Follow up as needed
== END 2018-06-24 18:44 | disposition home or self-care (01) ==
LOC: ER 17:23
PROC: 0H9EXZZ Drainage of Left Lower Arm Skin, External Approach (ICD-10-PCS; principal; 2018-06-24)
DX: L02.414 Cutaneous abscess of left upper limb (principal); F19.10 Other psychoactive substance abuse, uncomplicated; F17.200 Nicotine dependence, unspecified, uncomplicated; I10 Essential (primary) hypertension
CPT/HCPCS: 87070; 87075; 87077; 87186; 87205; 99283

== ENCOUNTER 2018-06-26 10:23 | Emergency (ER) | payer OTHER ==
[2018-06-26 10:39] VITALS: BP 188/115
[2018-06-26] MEDS ORDERED: HYDROCHLOROTHIAZIDE 25 MG TABLET PO ONE (10:50)
[2018-06-26] MEDS ORDERED: DILTIAZEM HCL 240 MG CAPSULE.CR PO ONE (10:51)
--- NOTE | 2018-06-26 10:53 | ER Document Report ---
HPI - HPI Pain Level: 1 Notes: Patient is a 32-year-old male who presents to the ED for wound recheck status post incision and drainage performed on an abscess on his left forearm 2 days ago. Patient states that he has been taking his medicines and has noted improvement in his symptoms. He has no other concerns or complaints. He is eating and drinking without any difficulties. No worsening redness or purulence. Denies any headache, fever, URI, sore throat, chest pain, palpitations, syncope, cough, shortness of breath, wheeze, dyspnea, abdominal pain, nausea/vomiting/diarrhea, urinary retention, dysuria, hematuria. - ROS Systems Reviewed and Negative: Yes All other systems reviewed and negative Past Medical History - Social History Smoking Status: Unknown if Ever Smoked Family History: CVA, Hypertension. denies: Arthritis, CAD, COPD, DM, Hyperlipidemia, Malignancy, Thyroid Disfunction - Past Medical History Cardiac Medical History: Reports: Hx Hypertension Pulmonary Medical History: Reports: Hx Asthma Renal/ Medical History: Denies: Hx Peritoneal Dialysis Past Surgical History: Reports: Hx Orthopedic Surgery - toothpick removed from foot, Hx Testicular Surgery - right testical removed - Immunizations Immunizations up to date: Yes Hx Diphtheria, Pertussis, Tetanus Vaccination: Yes Vertical Provider Document - CONSTITUTIONAL Agree With Documented VS: Yes Notes: PHYSICAL EXAMINATION: GENERAL: Well-appearing, well-nourished and in no acute distress. LUNGS: Breath sounds clear to auscultation bilaterally and equal. No wheezes rales or rhonchi. HEART: Regular rate and rhythm without murmurs, rubs, gallops. Musculoskeletal: Lt UE: FROM to passive/active. Strength 5+/5. Extremities: No cyanosis, clubbing, or edema b/l. Peripheral pulses 2+. Capillary refill less than 3 seconds. NEUROLOGICAL: Normal speech, normal gait. Normal sensory, motor exams PSYCH: Normal mood, normal affect. SKIN: I&D area noted with packing still in place to the left posterior forearm. There is minimal to no erythema. + induration w. minimal tenderness. Overall improved per pt. No purulence or streaks. - INFECTION CONTROL TRAVEL OUTSIDE OF THE [place] IN LAST 30 DAYS: No Course - Re-evaluation Re-evalutation: 06/26/18 10:50 Patient is an afebrile, well-hydrated, 32-year-old male who presents to the ED for a wound recheck status post incision and drainage. Vitals are currently acceptable without any significant tachycardia, tachypnea, or hypoxia. Patient does have elevated blood pressure, but has been out of his blood pressure medications. His hydrochlorothiazide as well as his Cardizem dose were given p.o. today. Packing was replaced and provided to the patient. Wound instructions reviewed. No further labs or imaging warranted at this time. Patient does not have any headache, dysuria, chest pain, shortness breath, abdominal pain, altered mental status. Patient to continue antibiotics as directed. I will send him with a refill of his blood pressure medications. Recheck with your PCM in 3-5 days. Return to the ED with any worsening/ concerning symptoms otherwise as reviewed in discharge. Patient is in agreement. - Vital Signs Vital signs: Temp Pulse Resp BP Pulse Ox 99.2 F 95 18 188/115 H 97 06/26/18 10:30 06/26/18 10:30 06/26/18 10:30 06/26/18 10:30 06/26/18 10:30 Discharge - Discharge Clinical Impression: Encounter for wound re-check, Elevated blood pressure reading Condition: Stable Disposition: HOME, SELF-CARE Additional Instructions: Keep the skin clean Wash with soap and water Tylenol/ibuprofen if needed Triple antibiotic ointment daily Wound dressing changes as directed Continue antibiotics as directed Monitor for any worsening symptoms Get your blood pressure medications refilled and monitor blood pressure daily, keep a log Recheck with your PCM in 3-5 days Consider consult with General Surgeon for ongoing/worsening symptoms Return to the ED with any worsening symptoms and/or development of fever, headache, chest pain, palpitations, syncope, shortness of breath, trouble breathing, abdominal pain, n/v/d, abscess, purulent discharge, red streaks, worsening swelling, or other worsening symptoms that are concerning to you. Prescriptions: Diltiazem HCl [Cardizem Cd 240 mg Capsule.cr] 240 mg PO DAILY #7 capsule.cr Hydrochlorothiazide 25 mg PO DAILY #7 tablet Forms: Elevated Blood Pressure Referrals: [facility] [Provider Group] - Follow up as needed [facility] [Provider Group] - Follow up as needed
== END 2018-06-26 11:20 | disposition home or self-care (01) ==
LOC: ER 10:23
DX: Z48.817 Encounter for surgical aftercare following surgery on the skin and subcutaneous tissue (principal); Z48.01 Encounter for change or removal of surgical wound dressing; L02.414 Cutaneous abscess of left upper limb; I10 Essential (primary) hypertension; T46.1X6A Underdosing of calcium-channel blockers, initial encounter; T50.2X6A Underdosing of carbonic-anhydrase inhibitors, benzothiadiazides and other diuretics, initial encounter; Z91.128 Patient's intentional underdosing of medication regimen for other reason; Z91.14 Patient's other noncompliance with medication regimen; J45.909 Unspecified asthma, uncomplicated
CPT/HCPCS: 99282; A6266

== ENCOUNTER 2018-06-29 18:09 | Emergency (ER) | payer SELFPAY ==
[2018-06-29] MEDS ORDERED: AZITHROMYCIN 250 MG TABLET PO ONE (18:28)
[2018-06-29] MEDS ORDERED: CEFTRIAXONE INJ 250 MG VIAL IM ONE (18:28)
[2018-06-29] MEDS ORDERED: LIDOCAINE 1% INJ-PF (10 MG/ML) 30 ML SDV INJ ONE (18:28)
--- NOTE | 2018-06-29 18:54 | ER Document Report ---
HPI - HPI Pain Level: 3 Notes: Patient is a 32-year-old male with no significant past medical history who presents to the ED complaining of swelling to the foreskin and to the head of his penis over the last 5 days with scant white discharge on the outside of the penis with narrowing of his "penis hole." Patient states that he is still able to urinate. Patient states that he has not been sexually active in the last few months, but when he was he did use protection. Patient states that he was placed on antibiotics for an abscess to his arm a week to week and half ago. He is otherwise eating and drinking without any difficulties. No other concerns or complaints. Denies any headache, fever, URI, sore throat, chest pain, palpitations, syncope, cough, shortness of breath, wheeze, dyspnea, abdominal pain, nausea/vomiting/diarrhea, urinary retention, dysuria, hematuria , numbness/tingling, muscle paralysis/weakness, or rash. - ROS Systems Reviewed and Negative: Yes All other systems reviewed and negative Past Medical History - Social History Smoking Status: Never Smoker Family History: CVA, Hypertension. denies: Arthritis, CAD, COPD, DM, Hyperlipidemia, Malignancy, Thyroid Disfunction - Past Medical History Cardiac Medical History: Reports: Hx Hypertension Pulmonary Medical History: Reports: Hx Asthma Renal/ Medical History: Denies: Hx Peritoneal Dialysis Past Surgical History: Reports: Hx Orthopedic Surgery - toothpick removed from foot, Hx Testicular Surgery - right testical removed - Immunizations Immunizations up to date: Yes Hx Diphtheria, Pertussis, Tetanus Vaccination: Yes Vertical Provider Document - CONSTITUTIONAL Agree With Documented VS: Yes Notes: PHYSICAL EXAMINATION: GENERAL: Well-appearing, well-nourished and in no acute distress. LUNGS: Breath sounds clear to auscultation bilaterally and equal. No wheezes rales or rhonchi. HEART: Regular rate and rhythm without murmurs, rubs, gallops. ABDOMEN: Soft, nontender, nondistended abdomen. No guarding, no rebound. No masses appreciated. Normal bowel sounds present. No CVA tenderness bilaterally. : no obvious hernia or adenopathy present. There is a white fungal appearing discharge noted underneath the uncircumcised foreskin which also has mild swelling and erythema associated. There is mild erythema and swelling to the head of the penis as well with narrowing of his urethra. No obvious urethral discharge. Musculoskeletal: FROM to passive/active. Strength 5+/5. Extremities: No cyanosis, clubbing, or edema b/l. Peripheral pulses 2+. Capillary refill less than 3 seconds. NEUROLOGICAL: Normal speech, normal gait. PSYCH: Normal mood, normal affect. SKIN: see above. - INFECTION CONTROL TRAVEL OUTSIDE OF THE [place] IN LAST 30 DAYS: No Course - Re-evaluation Re-evalutation: 06/29/18 18:53 Patient is an afebrile, well-hydrated, 32-year-old male who presents to the ED with balanitis and a mild paraphimosis which is still retractable and movable. Vitals are acceptable without any significant tachycardia, tachypnea, or hypoxia. PE is otherwise unremarkable. I do suspect that his symptoms are candidal in etiology. Patient is able to urinate and did provide us with a dirty urine. Patient had received Zithromax and Rocephin as well. I did review with Dr. Castillo who is in agreement with disposition and plan. I will cover him with clotrimazole. Patient to call the urologist tomorrow to schedule an appointment for further evaluation and management. Return to the ED with any worsening/concerning symptoms otherwise as reviewed in discharge. Patient is in agreement. Discharge - Discharge Clinical Impression: Balanitis Condition: Stable Disposition: HOME, SELF-CARE Instructions: Balanitis ([facility]) Additional Instructions: Push fluids (i.e. water, cranberry juice) Proper hygenic technique Keep the skin clean and dry Tylenol/ibuprofen as needed Use cream as directed F/u with your PCM in 3-5 days for a recheck Call the urologist tomorrow to schedule an appointment for further evaluation and management. It is important that you get evaluated in the next 1-2 days.* Return to the ED with any worsening symptoms and/or development of fever, headache, chest pain, palpitations, syncope, shortness of breath, trouble breathing, abdominal pain, n/v/d, blood in stool/urine, loss of control of bowel /bladder, urinary retention, worsening swelling, discharge, inability to urinate , or other worsening symptoms that are concerning to you. Prescriptions: Clotrimazole 1% Topical [Lotrimin 1% Topical Soln 10 ml] 1 applic TP BID #10 ml Forms: Elevated Blood Pressure Referrals: ROGER ERNANDEZ II, MD [[facility]] - Follow up tomorrow LORETTA NICHOLS MD [[facility]] - Follow up tomorrow
[2018-06-29 18:58] VITALS: BP 132/85
[2018-06-29 20:29] LABS: CHLAM PCR NOT DETECTED (NOT DETECT); GON PCR NOT DETECTED (NOT DETECT)
== END 2018-06-29 19:05 | disposition home or self-care (01) ==
LOC: ER 18:09
DX: N48.1 Balanitis (principal); I10 Essential (primary) hypertension
CPT/HCPCS: 99283; 96372; 87491; 87591; J3490; J0696

== ENCOUNTER 2018-11-08 11:05 | Emergency (ER) | payer SELFPAY ==
[2018-11-08] MEDS ORDERED: NORMAL SALINE 1000 ML 1,000 ML IV ONE (11:28)
[2018-11-08] MEDS ORDERED: DEXAMETHASONE SOD PHOS INJ 10 MG/1 ML VIAL IV ONE (11:28)
[2018-11-08] MEDS ORDERED: METOCLOPRAMIDE HCL INJ/PF 10 MG/2 ML SDV IV ONE (11:28)
[2018-11-08] MEDS ORDERED: KETOROLAC TROMETHAMINE INJ/PF 30 MG/1 ML SDV IV ONE (11:29)
[2018-11-08] MEDS ORDERED: MAGNESIUM SULFATE/D5W 1 GM/100 ML RTUPB IV ONE (11:29)
--- NOTE | 2018-11-08 11:30 | ER Document Report ---
ED Medical Screen (RME) - General Chief Complaint: Nausea/Vomiting Stated Complaint: BLOOD PRESSURE ISSUE Time Seen by Provider: 11/08/18 11:26 Notes: Patient is a 33-year-old male with hypertension that presents to the emergency department for chief complaint of headache. Patient reports having headache since yesterday, multiple episodes of vomiting, he states his been out of his blood pressure medication for several months, and his blood pressure has been elevated recently as well. He admits to having photophobia. ROS: Other than noted above, the 12 point review of systems was reviewed with the patient and were negative, all pertinent findings are included in the HPI. PHYSICAL EXAMINATION: Vital signs reviewed. GENERAL: Patient appears uncomfortable on exam HEAD: Atraumatic, normocephalic. EYES: Pupils equal round extraocular movements intact, conjunctiva are normal. PERRLA ENT: Nares patent NECK: Normal range of motion CV: Heart regular rate and rhythm LUNGS: No respiratory distress Musculoskeletal: Normal range of motion NEUROLOGICAL: Normal speech PSYCH: Normal mood, normal affect. MDM: Patient seen and examined for rapid initial assessment. Vital signs reviewed. A comprehensive ED assessment and evaluation of the patient, analysis of test results and completion of the medical decision making process will be conducted by additional ED providers. *Note is created using voice recognition software and may contain spelling, syntax or grammatical errors. TRAVEL OUTSIDE OF THE [place] IN LAST 30 DAYS: No - Related Data Allergies/Adverse Reactions: pine nut Allergy (Verified 06/26/18 10:53) Shellfish * [Shellfish] Allergy (Verified 06/26/18 10:53) ants Allergy (Uncoded 06/26/18 10:53) ragweed Allergy (Uncoded 06/26/18 10:53) Past Medical History - Social History Chew tobacco use (# tins/day): No Frequency of alcohol use: None - Past Medical History Cardiac Medical History: Reports: Hx Hypertension Pulmonary Medical History: Reports: Hx Asthma Renal/ Medical History: Denies: Hx Peritoneal Dialysis Past Surgical History: Reports: Hx Orthopedic Surgery - toothpick removed from foot, Hx Testicular Surgery - right testical removed - Immunizations Immunizations up to date: Yes Hx Diphtheria, Pertussis, Tetanus Vaccination: Yes History of Influenza Vaccine for 06/2017 - 11/2017 Season: No Physical Exam - Vital signs Vitals: Temp Pulse Resp BP Pulse Ox 98.3 F 86 20 188/113 H 97 11/08/18 11:10 11/08/18 11:10 11/08/18 11:10 11/08/18 11:10 11/08/18 11:10 Course - Vital Signs Vital signs: Temp Pulse Resp BP Pulse Ox 98.3 F 86 20 188/113 H 97 11/08/18 11:10 11/08/18 11:10 11/08/18 11:10 11/08/18 11:10 11/08/18 11:10
[2018-11-08] MEDS ORDERED: METOPROLOL TARTRATE PF/INJ 5 MG/5 ML SDV IV ONE (13:22)
--- NOTE | 2018-11-08 13:24 | ER Document Report ---
ED General - General Chief Complaint: Nausea/Vomiting Stated Complaint: BLOOD PRESSURE ISSUE Time Seen by Provider: 11/08/18 11:26 Mode of Arrival: Ambulatory Information source: Patient, Relative, [facility] Records Notes: 33-year-old male with a history of hypertension, asthma, who is noncompliant with his blood pressure medication presents with complaint of headache that started yet last night. Headache is located in his forehead described as a throbbing pain. Patient had one episode of nausea when he got to the emergency department. He denies any photophobia, slurred speech, focal weakness, difficulty with ambulation. He does report prior similar headaches. Patient does not know what blood pressure medication he is on. He states he stopped taking it over 6 months ago. He denies any fever or recent illness. Patient did receive dexamethasone, magnesium, Toradol and Reglan that was ordered by the provider in triage and does report an improvement of his pain. TRAVEL OUTSIDE OF THE [place] IN LAST 30 DAYS: No - HPI Onset: Yesterday Onset/Duration: Gradual Quality of pain: Achy, Throbbing Severity: Moderate Associated symptoms: Headache, Nausea, Vomiting. denies: Chest pain, Fever, Shortness of breath, Slow to respond Exacerbated by: Denies Relieved by: Denies Similar symptoms previously: Yes Recently seen / treated by doctor: No - Related Data Allergies/Adverse Reactions: pine nut Allergy (Verified 11/08/18 11:31) Shellfish * [Shellfish] Allergy (Verified 11/08/18 11:31) ants Allergy (Uncoded 11/08/18 11:31) ragweed Allergy (Uncoded 11/08/18 11:31) Past Medical History - General Information source: Patient, Relative, [facility] Records - Social History Smoking Status: Current Every Day Smoker Cigarette use (# per day): Yes - 15 Chew tobacco use (# tins/day): No Smoking Education Provided: Yes - Smoking cessation counseling was provided for 4 minutes at the bedside Frequency of alcohol use: None Drug Abuse: Cocaine Lives with: Family Family History: CVA, Hypertension. denies: Arthritis, CAD, COPD, DM, Hyperlipidemia, Malignancy, Thyroid Disfunction Patient has suicidal ideation: No Patient has homicidal ideation: No - Past Medical History Cardiac Medical History: Reports: Hx Hypertension Pulmonary Medical History: Reports: Hx Asthma Renal/ Medical History: Denies: Hx Peritoneal Dialysis Past Surgical History: Reports: Hx Orthopedic Surgery - toothpick removed from foot, Hx Testicular Surgery - right testical removed - Immunizations Immunizations up to date: Yes Hx Diphtheria, Pertussis, Tetanus Vaccination: Yes Review of Systems - Review of Systems Notes: REVIEW OF SYSTEMS: CONSTITUTIONAL : Denies fever, chills, or sweats. Denies recent illness. Denies weight loss, recent hospitalizations. EENT: Denies visual changes, eye pain. Denies sore throat, oral lesions, difficulty swallowing. CARDIOVASCULAR: Denies chest pain. Denies palpitations. Denies lower extremity edema. RESPIRATORY: Denies cough. Denies shortness of breath, wheezing. GASTROINTESTINAL: Denies abdominal pain or distention. Denies nausea, vomiting, or diarrhea. Denies blood in vomitus, stools, or per rectum. Denies black, tarry stools. Denies constipation. GENITOURINARY: Denies difficulty urinating, painful urination, frequency, blood in urine, testicular pain or penile discharge. MUSCULOSKELETAL: Denies back or neck pain or stiffness. Denies joint pain or swelling. SKIN: Denies rash, lesions or sores. HEMATOLOGIC : Denies easy bruising or bleeding. LYMPHATIC: Denies swollen glands. NEUROLOGICAL: Denies confusion or altered mental status. Denies loss of consciousness. Denies dizziness or lightheadedness. Denies weakness or paralysis. Denies problems difficulty with ambulation, slurred speech. Denies sensory loss, numbness, or tingling. Denies seizures. PSYCHIATRIC: Denies anxiety or stress. Denies depression, suicidal ideation, or Physical Exam - Vital signs Vitals: Temp Pulse Resp BP Pulse Ox 98.3 F 86 20 188/113 H 97 11/08/18 11:10 11/08/18 11:10 11/08/18 11:10 11/08/18 11:10 11/08/18 11:10 - Notes Notes: PHYSICAL EXAMINATION: GENERAL: Sleeping peacefully, no acute distress HEAD: Atraumatic, normocephalic. EYES: Pupils equal round and reactive to light, extraocular movements intact, sclera anicteric, conjunctiva are normal. ENT: Nares patent, oropharynx clear without exudates. Moist mucous membranes. NECK: Normal range of motion, supple without lymphadenopathy LUNGS: Breath sounds clear to auscultation bilaterally and equal. No wheezes rales or rhonchi. HEART: Regular rate and rhythm without murmurs ABDOMEN: Soft, nontender, nondistended abdomen. No guarding, no rebound. No masses appreciated. Musculoskeletal: Normal range of motion, no pitting or edema. No cyanosis. NEUROLOGICAL: Cranial nerves grossly intact. Normal speech, normal gait. Normal sensory, motor exams PSYCH: Normal mood, normal affect. SKIN: Warm, Dry, normal turgor, no rashes or lesions noted. Course - Re-evaluation Re-evalutation: Temp Pulse Resp BP Pulse Ox 98.3 F 86 23 H 188/113 H 98 11/08/18 11:10 11/08/18 11:10 11/08/18 13:00 11/08/18 11:10 11/08/18 13:00 Temp Pulse Resp BP Pulse Ox 98.8 F 87 18 173/112 H 97 11/08/18 18:39 11/08/18 18:39 11/08/18 18:39 11/08/18 18:39 11/08/18 18:39 11/08/18 13:24 33-year-old male with history of asthma, hypertension presents with complaint of headache that started last night. Prior to my exam patient received IV fluids, magnesium, dexamethasone, Toradol and Reglan and reports significant improvement in his headache. He is sleeping comfortably upon my exam. He does not know what his blood pressure medication was. He does not currently have a primary care physician. Patient is sleeping comfortably, will barely answer any of my questions and is prompted by his grandmother multiple times to answer me. 11/08/18 18:54 Patient was reevaluated multiple times and every time was sleeping comfortably. Upon discharge patient now complaining of multiple other vague complaints which he did not have for his over 3 hours of being in the emergency department. Patient did receive 2.5 mg of IV metoprolol which did initially improve his blood pressure. Patient was also given a dose of losartan which he has been provided a prescription for. Patient was evaluated and treated as appropriate for the patient's presenting symptoms and complaint, with consideration of any critical or life threatening conditions that may be associated with their obtained history and exam as noted above. All results were discussed with patient and... Patient provided the opportunity to ask questions, and express concerns. Patient was educated on treatments based on their presumed diagnosis as noted above. At this time we will discharge the patient with return precautions and follow-up recommendations. Verbal discharge instructions given a the bedside. Medication warnings reviewed. Patient is in agreement with this plan and has verbalized understanding of return precautions. After careful consideration I feel that that patient can be safely discharged from the emergency department, they were advised to followup with a primary care physician in 2-3 days. Dictation on this chart was performed using voice recognition software and may result in unintended grammatical, spelling, syntax or errors. - Vital Signs Vital signs: Temp Pulse Resp BP Pulse Ox 98.8 F 87 18 173/112 H 97 11/08/18 18:39 11/08/18 18:39 11/08/18 18:39 11/08/18 18:39 11/08/18 18:39 Discharge - Discharge Clinical Impression: Noncompliance with medication regimen Headache Qualifiers: Headache type: unspecified Headache chronicity pattern: unspecified pattern Intractability: not intractable Qualified Code(s): R51 - Headache Hypertension Qualifiers: Hypertension type: unspecified Qualified Code(s): I10 - Essential (primary) hypertension Condition: Good Disposition: HOME, SELF-CARE Instructions: Headache ([facility]), High Blood Pressure ([facility]), High Blood Pressure, Requiring Treatment ([facility]) Additional Instructions: Regarding Blood Pressure: Your blood pressure was noted to be greater than 120/80 at least once in the emergency room today. It is recommended that you follow-up with her primary care physician in the next week for repeat blood pressure check. The Centers for Medicare and Medicaid Services has specific recommendations regarding a person's blood pressure. There are several lifestyle modifications that are recommended in order to help lower your blood pressure. These include: Quitting smoking if you smoke. Reducing the amount of sodium in your diet. Getting regular exercise Limiting alcohol to no more than 2 drinks a day for men and one drink a day for women. Eating a healthy diet, including more fruits and vegetables, low fat dairy products, less saturated and total fat. Losing weight if you are overweight. FOLLOW-UP: Call your doctor's office and let them know your blood pressure was elevated and you were advised to get your blood pressure checked in the above time-line. If you are unable to get into your doctor's office in this time period, you can follow-up with a new physician (I have left the numbers below for a few primary care doctors affiliated with this [facility]) or return to the ER. PRIMARY CARE PHYSICIANS: Dr. Orville Frankel [phone], [place] [phone] Dr Leach Address: [address] [place] [address] [place] [address] Dr Shannon Address: [address] [place] [address] , [place] [address] Prescriptions: Losartan/Hydrochlorothiazide [Hyzaar 50-12.5 Tablet] 1 each PO DAILY #30 tablet Forms: Elevated Blood Pressure
[2018-11-08] MEDS ORDERED: LOSARTAN POTASSIUM 25 MG TABLET PO ONE (18:35)
[2018-11-08 18:41] VITALS: BP 173/112
== END 2018-11-08 19:02 | disposition home or self-care (01) ==
LOC: ER 11:05
DX: I10 Essential (primary) hypertension (principal); T50.906A Underdosing of unspecified drugs, medicaments and biological substances, initial encounter; Z91.128 Patient's intentional underdosing of medication regimen for other reason; Z91.14 Patient's other noncompliance with medication regimen; R51 Headache; R11.2 Nausea with vomiting, unspecified; J45.909 Unspecified asthma, uncomplicated; F17.210 Nicotine dependence, cigarettes, uncomplicated; Z71.6 Tobacco abuse counseling; Z91.013 Allergy to seafood
CPT/HCPCS: 99406; 99284; 96361; 96375; 96365; J1885; J2765; J3490; J3475; J7030; J1100